=== PATIENT | male | born 1945 | race Caucasian/White ===

== ENCOUNTER → 2016-09-06 | Outpatient (CLI) | payer OTHER ==
[~2016-09-06] VITALS: Ht 175.3 cm; Wt 130.2 kg
[~2016-09-06] MED LIST: ACETAMINOPHEN325 M1 PO; AFRIN MENTHOL S15 ML; AMARYL4 MG PO; APAP500; CALCIUM OYSTER500 MG PO; CENTRUM SILVER1 EAC1 PO; CHLORDIAZEPOXI1 EAC1 PO; DICYCLOMINE HCL20 MG PO; EFFEXOR XR150 MG PO; ENDOCET 10-3251 EACH PO; FLOMAX PO; FLONASE 0.05%50 MCG NASAL; FUROSEMIDE 20 M20 M1 PO; GAVISCON500 MG PO; GLUCOPHAGE850 MG PO; HYTRIN10 MG PO; INNOPRAN XL80 MG PO; KENALOG63 GM NASAL; LATANOPROST2.5 ML OP; LAVAZA; LEVOTHYROXIN0.075 MG PO; LIBRAX PO; LIPITOR20 MG PO; LOPRESSOR PO; LOVAZA1000 MG PO; MECLIZINE HCL12.5 MG PO; MIRALAX255 GM; MUCINEX D TABL1 EACH PO; NASACORT10.8 ML; NASAL SPRAY ORI30 ML; NEURONTIN 300300 M1 PO; NEURONTIN 300M300 M2 PO; OXYCODONE-ACET1 EAC2 PO; OXYCONTIN30 MG PO; OXYCONTIN40 MG PO; PRADAXA150 MG PO; SKELAXIN 800 M800 M1 PO; SKELAXIN 800 M800 MG PO; SYNTHROID PO; TOPROL XL100 MG PO; TRICOR145 MG PO; VITAMIN C 250250 MG PO; VITAMIN D 5050000 I1 PO; VITAMIN D1000 UNI1 PO; ZYRTEC PO
--- NOTE | ~2016-09-06 | HPC ---
[facility] [address] [place] [address] PAIN MANAGEMENT CONSULTATION Name: TOSIN ABBOTT Room #: REG ANTONETTE Harris#: [id number] Admission: 09/06/16 Attend Phys: Antolin Godinez MD Discharge: Date of : 43 Report #: [id number] THIS REPORT FOR: //name// CC: YAKELIN Rowe DATE OF SERVICE: 09/06/2016 Followup visit for chronic back pain. The patient returns to pain clinic today with his . He was in the clinic for a 30-minute consultation visit. We spent a lot of time with him again today as we often do. He remains one of our legacy patients on high dose opioid therapy. His current morphine milligram equivalent dose is 275 mg, nearly 3 times that recommended as the top dose by the CDC guidelines. While we have made efforts to taper his medication, we are some resistance as he continues to complain bitterly of pain with each reduction. He reports that his current oxycodone dose allows him to be more functional. He is morbidly obese, but has lost some weight over the course of the last year. His mobility remains limited, however. He has very low pain threshold. He does not have diffuse pain as one might see with opioid hyperalgesia, but he is certainly hyperalgesic across his low back. His examination reveals that he is exquisitely painful across his low back. We talked about perhaps injections or other therapies that would allow us to be able to adjust his opioid dose downwards with an opioid sparing fact, but he is reluctant to have any injections and refused them flat out. He says the last time he has had injections, they caused more problems than they were worth. He has terrible thrush with any sort of steroid injections. He is not really a candidate for surgery. On a positive note, he has not been hospitalized, he does not use the ER for rescue, he has not had any lost prescriptions, he has been on time for all of his doctor's appointment. He and his have been drilled over and over about safe monitoring of all of his medications. He has taken his medications I believe as prescribed with benefits that he has appreciated. After some discussion today, I have elected to keep this dose the same, we will not make further adjustments. CURRENT MEDICATIONS: OxyContin 70 mg t.i.d., oxycodone 10/325 one tablet q. 4 hours averaging of about 4-1/2 tablets per day. Uses Skelaxin 800 mg b.i.d., gabapentin 300 mg q. 6 hours. PHYSICAL EXAMINATION: He is anxious, loquacious, 71-year-old. His blood pressure is 131/66, heart rate 73. His BMI is down to 42. [place] [address] PAIN MANAGEMENT CONSULTATION Name: TOSIN ABBOTT Room #: REG ANTONETTE Harris#: [id number] Admission: 09/06/16 Attend Phys: Antolin Godinez MD Discharge: Date of : 43 Report #: [id number] from sitting to standing position, but walks with somewhat of a waddling gait. His chest is clear. His cardiac rhythm is regular. Examination of his abdomen reveals morbidly obese gentleman with a large abdominal girth. Examination of his spine reveals marked limitations in range of motion. He has regarding in all planes. Palpatory exam reveals tenderness across the lumbosacral segment. Light touch overlying the lumbar L5-S1 region elicited a scream, a howl and a jump. Certainly, hyperalgesic in that areas, the pressure exerted was not much. Straight leg raising currently is negative for any radicular symptoms. IMPRESSION: 1. Intractable low back pain with spondylosis. 2. Management of high risk medications under terms of an opioid agreement. He remains one of the highest dose patient's in our clinic and we will continue to monitor him carefully. We have performed a urine drug screen within the last 12 months, which was appropriate for medications provided through our clinic, oxycodone only was identified. PLAN: Followup visit is planned in 3 months. I stressed once again the importance of safeguarding medication. Thirty minutes spent with the patient. By: [id number] Antolin Godinez MD /nt
[2016-09-06 11:17] VITALS: BP 131/66
== END | disposition home or self-care (01) ==
LOC: PAIN 07:27
DX: M47.896 Other spondylosis, lumbar region (principal); G89.29 Other chronic pain; F11.20 Opioid dependence, uncomplicated; Z87.891 Personal history of nicotine dependence

== ENCOUNTER → 2016-11-29 | Outpatient (CLI) | payer OTHER ==
[~2016-11-29] VITALS: Ht 167.6 cm; Wt 127.0 kg
--- NOTE | ~2016-11-29 | HPC ---
[facility] [address] [address] PAIN MANAGEMENT CONSULTATION Name: TOSIN ABBOTT JR Room #: REG [facility] Mary.#: [id number] Admission: 11/29/16 Attend Phys: Antolin Godinez MD Discharge: Date of : 43 Report #: [id number] THIS REPORT FOR: //name// CC: Antolin Martinez DATE OF SERVICE: 11/29/2016 Followup visit for management of high dose high risk medication. The patient returns to pain clinic today with his . We had another lengthy discussion today about his medication. Much of these issues were reviewed on his appointment on 09/06/2016. I went through each of the issues described in that dictation once again, the CDC guidelines particularly with his daily morphine equivalent dose of 277.5 mg. We talked about the importance of safeguarding medication. He has really other than the dose of medication has followed the guidelines quite carefully. In defense of this high dose therapy, I will say once again that over the course of his longstanding medication management, dating back to 2000, he has avoided any Emergency Room visits for intractable pain. He has not been hospitalized for his pain issues. He has had no additional operations. He has not sought out additional physician treatment options. He has continued to remain fairly active, limited more by his obesity than he is by his pain. He has been able to enjoy family and other activities. On that basis, I feel that his medication management has been successful. There has been no evidence of drug abuse of behaviors or diversion. CURRENT MEDICATIONS: OxyContin 70 mg b.i.d. and oxycodone 10/325 1 tablet q. 4-6 hours averaging 5 per day. Gabapentin 300 mg q. 6 hours, Skelaxin 800 mg b.i.d. PHYSICAL EXAMINATION: Pleasant elderly gentleman, 71 years of age, morbidly obese. His BMI is 45.2. His blood pressure 128/53, heart rate 65, respirations 16. He is able to move independently from sitting to standing position, walks without a cane. He has pain across his low back, tenderness into his left leg. Sensation and strength are normal in lower extremities. He also has pain on the right, radiating into the right hip with SLR. Plan: Under terms of our opioid agreement I will continue to prescribe for him with efforts to reduce his reliance on opioids. The critical necessity of managing medications carefully so that they are not diverted or stolen was discussed. Followup is planned in our clinic at [address] [address] PAIN MANAGEMENT CONSULTATION Name: TOSIN ABBOTT Room #: REG [facility].#: [id number] Admission: 11/29/16 Attend Phys: Antolin Godinez MD Discharge: Date of : 43 Report #: [id number] <ELECTRONICALLY SIGNED> By: Antolin Godinez MD 12/03/16 1722 1605 [id number] Antolin Godinez MD /alex
[2016-11-29 11:03] VITALS: BP 128/53
== END | disposition home or self-care (01) ==
LOC: PAIN 07:45
DX: M54.16 Radiculopathy, lumbar region (principal); G89.29 Other chronic pain; F11.20 Opioid dependence, uncomplicated; Z88.8 Allergy status to other drugs, medicaments and biological substances; Z79.899 Other long term (current) drug therapy

== ENCOUNTER → 2017-02-21 | Outpatient (CLI) | payer OTHER ==
[~2017-02-21] VITALS: Ht 167.6 cm; Wt 126.6 kg
[~2017-02-21] MED LIST changes: +GAVISCON 80-141 EACH PO; -GAVISCON500 MG PO
--- NOTE | ~2017-02-21 | HPC ---
[facility] [place] [address] PAIN MANAGEMENT CONSULTATION Name: TOSIN ABBOTT Room #: REG [facility] Mary.#: [id number] Admission: 02/21/17 Attend Phys: Antolin Godinez MD Discharge: Date of : 43 Report #: [id number] THIS REPORT FOR: //name// CC: Antolin Martinez DO DATE OF SERVICE: 02/21/2017 Followup visit for management of high-dose opioids for intractable back pain with radiculopathy. The patient is in the clinic today for another 25-minute followup visit. He is here with his who was helpful also in giving us feedback about how he is doing. As I noted on my dictation of 11/29/2016, the patient has done extremely well with these medications and avoiding additional health care encounters, and the same would hold true for the last 3-month interval. He has not been hospitalized, not been in the Emergency Room. He continues to do well with managing his pain carefully with medication. Despite what we describe as good pain management control, his pain score is an 8/10. It is exacerbated by standing, twisting and turning. I do not think the pain score is helpful here in truly reflecting how well the medication has done in keeping him functional. We have talked about cognitive side effects. The patient has always been a bit tangential in his discussions. Today, he had some word searching and I have asked Ana to watch it carefully. This kind of insulted the patient and he went into a long dissertation. He claims that I would do the same and he may be correct! Today, he reports that he has continued to lose some weight, his BMI is indeed down from 45.1. Blood pressure 114/71, pulse is 60. He has tenderness across his low back and positive straight leg raising on the right. IMPRESSION: 1. Chronic intractable low back pain with radiculopathy on the right. 2. Management of high risk medications. 3. Morbid obesity. PLAN: I have renewed his medications at current dose. We will continue to try and taper his medication gradually. He remains on some polypharmacy including 70 mg of OxyContin b.i.d., oxycodone 10/325 mg 4-5 tablets daily, Skelaxin 800 mg b.i.d. as needed, gabapentin 300 mg daily. We will continue to try and taper him towards the CDC guideline, although this would be very challenging at his dose of around 200 mg. I made it critical that he safeguard his medications and he and Ana both report that they are very [address] [address] PAIN MANAGEMENT CONSULTATION Name: ABBOTTTOSIN Room #: REG [facility] Steven#: [id number] Admission: 02/21/17 Attend Phys: Antolin Godinez MD Discharge: Date of : 43 Report #: [id number] cautious about doing so; they have been on time for all there prescriptions and there have been no red flag behaviors. <ELECTRONICALLY SIGNED> By: Antolin Godinez MD 02/22/17 1322 [id number] [id number] Antolin Godinez MD /nt
[2017-02-21 10:39] VITALS: BP 114/71
== END ==
LOC: PAIN 06:58
DX: M54.16 Radiculopathy, lumbar region (principal); E66.01 Morbid (severe) obesity due to excess calories

== ENCOUNTER → 2017-05-02 | Outpatient (CLI) | payer OTHER ==
[~2017-05-02] VITALS: Ht 167.6 cm; Wt 125.9 kg
--- NOTE | ~2017-05-02 | HPC ---
[facility] [address] [address] PAIN MANAGEMENT CONSULTATION Name: TOSIN ABBOTT Room #: REG [facility] Steven#: [id number] Admission: 05/02/17 Attend Phys: Antolin Godinez MD Discharge: Date of : 43 Report #: [id number] THIS REPORT FOR: //name// CC: Antolin Martinez DATE OF SERVICE: 05/02/2017 A 25-minute followup visit for chronic low back pain. The patient is in clinic today with his for a 20-minute followup visit. He remains on high dose opioids. He remains on high dose opioid therapy. His current daily dose is OxyContin 70 mg b.i.d. and oxycodone 10/325 mg 4-5 tablets a day. In addition, he takes metaxalone 4 times daily for muscle relaxation and gabapentin 300 mg 9 tablets daily. Despite this high dose of medication he reports that his pain every day as a 7-8/10, sharp, stabbing and burning across his low back. We discussed his Darrell and the recent passing of his [id number] in [place]. He and his Amee drove to [place] and he complained bitterly about the fact that he had to do some simple tiding in the house. This aggravated his pain tremendously. He has had no significant side effects with medication. We made efforts in tapering his medication throughout 2017 and will continue that in 2018. I have given him the rationale for this. I have also told him that we are finding more often than not patients in the high dose opioid therapy are not able to find physicians to transfer their care. I will be 61 this year and in the future, he will need to consider the possibility of transferring his care to another physician. Physicians have been very reluctant to accept new high dose opioid patients. These are the simple facts of today's medicine. I continue to report that his medication provided a decent interval relief. He stayed out of the Emergency Room. He has not had any operations. He has remained functionally active around the house. He is able to do many of the things that he would like to do. Today, he reports that his pain is all basically across the lumbosacral segment without leg pain. At one time, he had more radiculopathy on the right. This seems to have resolved over time. PHYSICAL EXAMINATION: GENERAL: He appears to be alert and oriented. His speech pattern seem better to me today. It was not word searching as much as he has been in the past. He is morbidly obese with a BMI of over 45. VITAL SIGNS: Blood pressure is 114/71, [place] [address] PAIN MANAGEMENT CONSULTATION Name: ABBOTTTOSIN Room #: REG ANTONETTE Harris#: [id number] Admission: 05/02/17 Attend Phys: Antolin Godinez MD Discharge: Date of : 43 Report #: [id number] MUSCULOSKELETAL: He has significant tenderness across the lumbosacral segment. He has minimal pain in the hip. PQRI STATEMENT: Tosin does not smoke. He is not hypertensive. I have reviewed and reconciled all medications. He denies any symptoms of osteoarthritis. Pain score is 7-8/10. He has taken using a cane, has a stabilizing assistance and would be considered a fall risk. We talked about cautious movements, particularly from sitting to standing. A fall plan was reviewed. I have reviewed with him his opioid agreement and plan to see him at 3-month intervals. He denies use of alcohol. PLAN: We will continue his medications at current dosing of 70 mg of OxyContin b.i.d., oxycodone 10/325, Skelaxin 800 mg b.i.d. and gabapentin 300 mg 3 tablets daily. We will work to continue tapering and will make an additional move in 07/2017. A 25-minute followup visit. <ELECTRONICALLY SIGNED> By: Antolin Godinez MD 05/06/17 1048 [id number] Antolin Godinez MD /nt
[2017-05-02 10:20] VITALS: BP 136/90
== END ==
LOC: PAIN 06:46
DX: M54.16 Radiculopathy, lumbar region (principal); F11.90 Opioid use, unspecified, uncomplicated

== ENCOUNTER → 2017-07-25 | Outpatient (CLI) | payer OTHER ==
[~2017-07-25] VITALS: Ht 170.2 cm; Wt 127.6 kg
--- NOTE | ~2017-07-25 | HPC ---
[facility] [address] [place] [address] PAIN MANAGEMENT CONSULTATION Name: TOSIN ABBOTT Room #: REG Yo Hernandez.#: [id number] Admission: 07/25/17 Attend Phys: Antolin Godinez MD Discharge: Date of : 43 Report #: [id number] THIS REPORT FOR: //name// CC: Antolin Martinez DATE OF SERVICE: 07/25/2017 Three-month followup visit for management of high dose, high risk medication. The patient has been a longstanding patient of the clinic. Our relationship began in 1999. He has been on OxyContin for management of his back pain since 2000. His dose has been stable at high dose for over 10 years. He has been followed very carefully and closely at 3-month intervals coming always with his , Ana. We have had multiple discussions over the years about his medication use with attempts to reduce his medication dose. He has very aggressively fought against medication reduction generally on the basis of severe increases in pain when he does not have the medication available. He describes his pain intensity is a 7/10. Pain is nearly always in his low back radiating through his right hip and leg. He has been treated in the past with epidural injections and we have offered in the past more aggressive interventional procedures for treatment; however, he has been able to manage his pain effectively with the medication and is reluctant to take the risks of additional procedures including spinal cord stimulation and intrathecal pump. I have noted elsewhere throughout the record that when we describe his management goals, we have been able to keep him out of the Emergency Room in the hospital. Not one time over the course of the last 18 years has he been hospitalized for uncontrolled or intractable pain. He has not had a single visit to an Emergency Room to pursue treatment for unmanageable back pain symptoms. He has been on time for his medication and shows up for his appointments. His , Ana helps manage his medication with him so that he has someone to help oversee his treatments. He has been able to be reasonably function, limited far more by his obesity and his obsessive compulsive disorder then he has by his pain. He is in fact assisting his in the upcoming move from their 2-vin home into a single level in the next weeks to come. I have reviewed all medications on the electronic medical record. He is on a significant polypharmacy. For pain, we have kept him on a stable regimen, which is complex. He is on gabapentin 300 mg 4 times daily, metaxalone mg 4 times daily, OxyContin 70 mg b.i.d., oxycodone 10/325 four to five tablets a day for breakthrough pain. He denies significant side effects. Bowels function well. He has not had difficulty with nausea. I have noticed in the course of the last few years that he has had some progressive word searching, this could be related to this medication. [address] [address] PAIN MANAGEMENT CONSULTATION Name: ABBOTTTOSIN NORTH Room #: REG ANTONETTE Harris#: [id number] Admission: 07/25/17 Attend Phys: Antolin Godinez MD Discharge: Date of : 43 Report #: [id number] Periodic drug testing is performed and I have recommended that we perform drug testing today. Overall, review of systems suggest that he has dyspnea on exertion and has difficulty going up and down stairs as a result of his obesity. He has nocturia typical of a 71-year-old. He has variable sleep habits, changes positions frequently throughout the night. He is able to sleep in a bed. He has a possible fall risk, but has had no falls in the last 3 months and uses a cane carefully. He is on the blood thinner, Pradaxa for history of DVT and atrial fib. He is also under treatment for hypertension. He complains of pain in other joints including hips and knees related to osteoarthritis, although we have no new x-rays. He denies use of tobacco or alcohol. He has completed an opioid risk assessment tool and is considered a low risk with a score of 1 due to a history of depression. His functional assessment tool score is at 34/70 showing some adaptation to his pain. His most recent opioid contract review and signing was in November 2015. PHYSICAL EXAMINATION: GENERAL: Shows a pleasant, loquacious gentleman, a bit of obsessive compulsive. He has a bit of word searching today and I have noted that previously. His BMI is 44.1. As usual, he is wearing short pants and knee socks as he does 12 months a year. He is able to independently move from sitting to standing position. He ambulates with a slow gait. Thoracic kyphosis is noted. VITAL SIGNS: Cardiac rhythm is regular today. Heart rate is 78, blood pressure 136/63. There is no evidence of dyspnea or shortness of air. ABDOMEN: Obese. MUSCULOSKELETAL: Straight leg raising discomfort noted, more so on the left. IMPRESSION: 1. Chronic low back pain with radiculopathy. 2. Management of high risk medication. All medications were reviewed, renewed under terms of our written opioid agreement. I discussed in detail the CDC guidelines. He is one of our highest dose patients. We have talked about the addiction issues in [place]. We have talked about goals of care, which include avoiding additional health care contacts for his condition. We have talked about safeguarding of all medications, which his assists him with. I also discussed with advanced care planning. He is quite dependent on her. She is his durable power of data operations director and they have completed healthcare directives. Plan is for him to follow up at 3-month intervals. Buccal drug testing was performed before discharge. [facility] [address] [facility] [place] [address] PAIN MANAGEMENT CONSULTATION Name: SCARTOSIN Room #: REG CLI Steven#: [id number] Admission: 07/25/17 Attend Phys: Antolin Godinez MD Discharge: Date of : 43 Report #: [id number] Time spent in visit is 30 minutes. By: [id number] Antolin Godinez MD /nt
[2017-07-25 10:32] VITALS: BP 136/63
== END ==
LOC: PAIN 06:59
DX: M54.16 Radiculopathy, lumbar region (principal); G89.29 Other chronic pain; Z79.899 Other long term (current) drug therapy

== ENCOUNTER → 2017-10-17 | Outpatient (CLI) | payer OTHER ==
[~2017-10-17] VITALS: Ht 170.2 cm; Wt 124.2 kg
--- NOTE | ~2017-10-17 | HPC ---
[facility] [place] [address] [address] [place] [address] PAIN MANAGEMENT CONSULTATION Name: TOSIN ABBOTT [facility] [id number] Admission: 10/17/17 Attend Phys: Antolin Godinez MD Discharge: Date of : 43 Report #: [id number] THIS REPORT FOR: //name// CC: Antolin Martinez DO DATE OF SERVICE: 10/17/2017 Followup visit for chronic back pain. This is a followup visit for the patient. I have many lengthy dictations on the chart documenting his chronic use of very high dose OxyContin and oxycodone. His dose of OxyContin is 70 mg b.i.d. and oxycodone 10/325 up to 5 times a day. I provided him with these medications under terms of written opioid agreement. He has had a recent buccal drug screen appropriate for medications provided with no surprises. He and his have recently moved into a fci apartment. All maintenance provided. He is happy to be there, but he reports that it was challenging to move out of his previous home. He had some exacerbations of pain. He is asked once again as he pain is higher after activities. I have had many discussions with him about rest, nonpharmacologic relaxation techniques, heat, ice and simply allowing himself to get better. One of the reasons I gave him 135 breakthrough tablets is that most days I want him to use 4 for breakthrough that is plenty. He can keep the additional medication for those severe days. He is clearly quite dependent on medication for management of his pain and I will continue it for now. I have told him that he is one of the highest dose patients in our practice and I have over the years made efforts to try and reduce his medication. This is often a push-pull relationship as the patient continually suggests that he is undertreated. On more positive note, he is still avoiding any other health care contacts. He has not been in the hospital. He has not been in the Emergency Room. I once again feel that treating his pain has been an important aspect of that. Without adequate pain control, I suspect that he would be in the Emergency Room on a regular basis. Continues depend heavily on his , Ana, who is always at his side and helps manage his medication. We have had multiple discussions and reiterated again the importance of safeguarding all medications. PHYSICAL EXAMINATION: Blood pressure is 130/70, heart rate 63, respirations 20, BMI is 42.9. Can independently move from sitting to standing position, walk [address] [address] PAIN MANAGEMENT CONSULTATION Name: TOSIN ABBOTT Room #: REG [facility] Mary.#: [id number] Admission: 10/17/17 Attend Phys: Antolin Godinez MD Discharge: Date of : 43 Report #: [id number] with a cane. He does not appear to be a fall risk. He has an opioid agreement signed in 2016 and has signed his first agreement nearly 20 years ago. His pain is mostly in his low back and radiates into his leg with radicular features. He has some osteoarthritis. He is at low risk of addiction by the assessment tool. He does not smoke or use alcohol. IMPRESSION: 1. Chronic low back pain with radiculopathy. 2. Management of high-risk medication. 3. Morbid obesity. Followup visit planned in 3 months. I have renewed his medications. By: [id number] Antolin Godinez MD /nt
[2017-10-17 13:56] VITALS: BP 130/70
== END ==
LOC: PAIN 06:58
DX: M54.16 Radiculopathy, lumbar region (principal); M54.5 Low back pain; E66.01 Morbid (severe) obesity due to excess calories; Z79.899 Other long term (current) drug therapy

== ENCOUNTER → 2018-03-31 | Outpatient (CLI) | payer OTHER ==
[~2018-03-31] VITALS: Ht 167.6 cm; Wt 124.5 kg
--- NOTE | ~2018-03-31 | HPC ---
[facility] [place] [address] PAIN MANAGEMENT CONSULTATION Name: TOSIN ABBOTT Room #: REG [facility] Mary.#: [id number] Admission: 03/31/18 Attend Phys: Mindi Min Discharge: Date of : 41 Report #: [id number] THIS REPORT FOR: //name// CC: Mindi Martinez DO DATE OF SERVICE: 03/31/2018 This is a followup visit for his chronic back pain. HISTORY OF PRESENT ILLNESS: The patient presents today with low back pain; right hip, right leg pain, especially in the right sacroiliac area, complaining of 7/10 of an average pain score, here for his medication renewal for this back pain. He also is complaining of some right wrist pain that he has had some arthritis and he tells me that it has been worse over the last few days with the weather and moving things. They have recently moved into a new house and he thinks just being active moving things has irritated it some also. He did tell me that his pain is worse when he is standing, twisting, riding in a car, changing positions; and medication is very helpful. The patient tells me that he has no problems with constipation because he uses MiraLax and does not have any daytime somnolence. Occasionally, he does take naps when he has not slept well in the evening. He has recently had his second sleep study. He is unsure of the results of this, that he will go to the sleep study doctor in June, but will find out from his primary care doctor hopefully the results before then. His tells me that he does snore and they did send his mask home with him from his sleep study, so she thinks that he will be getting a CPAP machine in the future. ALLERGIES: DARVON, BIAXIN and METHADONE. CURRENT MEDICATION LIST: Oxycodone 10/325 up to 5 a day, OxyContin 40 mg twice a day, OxyContin 30 mg twice a day, Skelaxin 800 mg twice a day as needed, gabapentin 300 mg 1 tablet 4 times a day, vitamin D, Flonase, Synthroid, omega 3, metoprolol 100 mg daily, MiraLax daily, Zyrtec daily, Mucinex twice a day, vitamin C, calcium, multivitamin, Pradaxa 150 mg twice a day, dicyclomine 20 mg daily, metformin 850 mg daily, Effexor XR 150 mg daily, Hytrin 10 mg daily, Lipitor 20 mg daily, TriCor 145 mg daily, Amaryl 4 mg daily, Lasix 20 mg daily and Flomax 0.4 daily. PQRS: 1. He has history of osteoarthritis in his right wrist and his lower back. Denies rheumatoid arthritis. 2. Height is 5 feet 6 inches, weight is 274 with a BMI of 44.3. 3. Vital signs BP 140/87, pulse is 84, respirations 20, oxygen sat is 100%, [address] [address] PAIN MANAGEMENT CONSULTATION Name: TOSIN ABBOTT JR Room #: REG ANTONETTE Harris#: [id number] Admission: 03/31/18 Attend Phys: Mindi Min Discharge: Date of : 41 Report #: [id number] pain score is 7/8. 4. Fall risk. He denies dizziness. Does not need help walking or standing and has not fallen in the last 3 months. 5. The patient is on Pradaxa for blood thinner and has a history of hypertension. 6. The patient is on opioid therapy greater than 6 weeks; therefore, an opioid sign contract is on the chart and a recent buccal screen. 7. His risk assessment is low and his functional assessment is 15/70 which has decreased impact score from the previous one. 8. Recreational drug use. He denies he is a former smoker and does not drink alcohol. We did check the [place] and [place] prescription monitoring system and patient is filling appropriately from only Dr. Antolin Godinez for his narcotic medicines. The patient tells me he safeguards his medicines. PHYSICAL EXAMINATION: GENERAL: This is a well-developed, well-nourished gentleman that appears his stated age. He is alert and oriented x 3. His affect is appropriate. HEENT: Normocephalic, atraumatic. Extraocular eye muscles are intact. Mucous membranes are moist. Hearing is adequate. NECK: No JVD or adenopathy. MUSCULOSKELETAL: The patient is developing kyphosis, becoming very rotund and immobile. EXTREMITIES: Lower extremities demonstrate status discoloration in his lower extremities, localized tenderness in his lower back particular over his right sacroiliac area. Straight leg raising is positive for pain in the sacroiliac joint. No radicular component though is present. Also, pain located in the right wrist, slightly tender on the outer part of his wrist today. Lower muscle extremity strength judged to be 4/5 bilaterally in all major muscle groups. IMPRESSION: 1. Chronic low back pain with sacroiliac joint pain. 2. Management of high risk medication. 3. Morbid obesity. 4. Hypertension. We reviewed the fact that opiate medications are being used to provide analgesia adequate to support activities of daily living, not attempting to achieve a specific pain score on the 0-10 Visual Analog Scale. The current opiate medications are providing sufficient analgesia to allow the patient to participate in activities of daily living. The patient is not exhibiting any aberrant behavior suggestive of drug diversion. The patient is not having any adverse reactions to medications. The patient is not suffering from daytime somnolence or mental acuity changes. The patient is managing opiate-induced constipation with appropriate pfmr-ozb-oendnoo agents and dietary considerations. The patient was counseled on concern for caution with operating a motor vehicle while using opiate medications. [address] [address] PAIN MANAGEMENT CONSULTATION Name: TOSIN ABBOTT Room #: REG [facility].#: [id number] Admission: 03/31/18 Attend Phys: Mindi Min Discharge: Date of : 41 Report #: [id number] A physical exam was performed and the patient's functional status was evaluated. All patients with back pain were advised against the bed rest greater than 4 days and were advised to return to normal activities. Pain score assessment was noted and the treatment plan was reviewed with the patient. All current medications, both prescribed and OTC were reviewed and reconciled on the electronic medical record. Tobacco screening was accomplished and smoking cessation was advised when indicated. BMI was noted and diet/exercise modification was recommended for all patients following outside normal parameters. I reviewed with the patient today their responsibilities to safeguard prescription medications, reviewed their responsibility to utilize medications only as prescribed by the physician. They are to seek and receive pain medications only from 1 physician group ( [facility]). They are to use 1 pharmacy and keep the clinic informed if they change pharmacies. Their responsibilities include making followup visits in a timely fashion and to avoid abrupt discontinuation of medication usage. Their responsibilities further include bringing their medications (bottles from the pharmacy with residual pills) to the visit for possible confirmation of pill counts and the patient understands it is their responsibility to submit to random drug screens to ensure both that the medications prescribed are present, and that no other controlled substances are present. All prescriptions provided today were generated electronically. PLAN: 1. The patient seen today for refill of his long-term opioid medication that he is followed by Dr. Antolin Godinez. The patient is on a very high dose of his opioids per the CDC guidelines that has been decreased recently and patient has tolerated this decrease and has been doing better as far as activity. The patient seems alert and oriented, very upbeat today, compared to previous visits. We will refill his medication for 3 months based on his contract with Dr. Antolin Godinez of OxyContin 30 mg, #60 for today, 4-week and 8-week release; OxyContin 40 mg b.i.d., #60 for today, 4-week and 8-week release; oxycodone 10/325, #135, again for today, 4-week and 8-week release; Skelaxin 80 mg, 120 for a 3-month supply with 2 additional refills for mail off. The patient does not need gabapentin today since we gave him a year's supply at last visit. 2. The patient will be seen again in 3 months for his opioid medicines. The patient is agreeable with this plan of care. This patient is seen today in collaboration with Dr. Antolin Godinez. <ELECTRONICALLY SIGNED> By: Mindi Min 04/01/18 0817 [id number] Mindi Min /alex
[2018-03-31 10:06] VITALS: BP 140/87
== END ==
LOC: PAIN 00:20
DX: M54.5 Low back pain (principal); G89.29 Other chronic pain; M53.3 Sacrococcygeal disorders, not elsewhere classified; I10 Essential (primary) hypertension; E66.01 Morbid (severe) obesity due to excess calories; Z79.899 Other long term (current) drug therapy

== ENCOUNTER → 2018-06-27 | Outpatient (CLI) | payer OTHER ==
[~2018-06-27] VITALS: Ht 167.6 cm; Wt 125.3 kg
[2018-06-27 08:58] VITALS: BP 147/85
--- NOTE | 2018-06-27 09:03 | NUR ---
Pain Clinic Assessment: 1. History of Osteoarthritis: NO History of Rheumatoid Arthritis: Not Applicable 2. Height: 5 ft. 6 in. 167.6 cm. Weight: 276.2 lb. oz. 125.284 kg. Patient's BMI: 44.6 3. Vital Signs: BP: 147/85 Pulse: 70 Resp: 16 Temp: 02 Sat: 96 ECG Mon: 4. Pain Intensity: 8 5. Fall Risk: Dizziness: N Needs help standing or walking: N Fallen in the last 3 months: N Fall risk comments: 6. Patient on Blood Thinner: Dabigatran Etex (Pradaxa) 7. History of Hypertension: Y 8. Opioid Therapy greater than 6 weeks: Y Opiate Contract Signed: 11/09/15 9. Risk Assessment Tool Provided: LOW RISK-1 10. Functional Assessment Tool: 11. Recreational Drug Use: Never Drug Type: Tobacco Use: Former Smoker Tobacco Type: Amount or Packs/day: How Many Years: Alcohol Use: No Frequency: Quant:
--- NOTE | 2018-06-30 09:27 | HPC ---
[facility] [address] [place] [address] PAIN MANAGEMENT CONSULTATION Name: TOSIN ABBOTT Room #: REG ANTONETTE Hernandez.#: [id number] Admission: 06/27/18 ������������������ Attend Phys: Mindi Min Discharge: ������������������ Date of : 41 Report #: [id number] THIS REPORT FOR: //name// CC: Mindi Min Oral Martinez DATE OF SERVICE: 06/27/2018 CHIEF COMPLAINT: Chronic back pain. HISTORY OF PRESENT ILLNESS: The patient returns to the pain clinic today for refill of his medications for his ongoing low back pain that radiates into his right leg and hip and his right sacroiliac area. Today, he is complaining of a pain score of 8/10, states this is about the worst that he has been lately. He has worst pain when he is standing, twisting or riding in the car; better with his medication and ice bags. He tells me he has no problems with constipation. He does take some MiraLax. Otherwise, is very well controlled. He is here with his present today who she agrees that he has been doing quite well lately. He would just like a refill of his medication. He did state that sometimes, it is hard to make his oxycodone breakthrough pain medicines last for the month with a 135 pills that he has been managing. ALLERGIES: DARVON, DARVOCET, BIAXIN AND METHADONE. CURRENT LIST OF MEDICATIONS: Oxycodone 10/325 p.r.n., OxyContin 40 mg b.i.d., OxyContin 30 mg b.i.d., Skelaxin 800 mg b.i.d. p.r.n., Neurontin 300 mg q.6h., vitamin D daily, Flonase daily, Synthroid 75 mcg daily, Lovaza 4 tablets daily, Librax 1 as needed, Toprol-XL 100 mg daily, Gaviscon as needed, Afrin as needed, MiraLax daily, Zyrtec daily, vitamin C 250 mg 2 b.i.d., calcium 500 mg daily, multivitamin daily, Pradaxa 150 mg b.i.d., Bentyl 25 mg as needed, metformin 850 mg daily, Effexor XR 150 mg daily, Hytrin 10 mg daily, Lipitor 40 mg daily, TriCor 145 mg daily, Amaryl 4 mg daily, Lasix 20 mg daily, Flomax 0.4 mg daily. The patient has a history of osteoarthritis in his wrist, lower back and his hip. Denies rheumatoid arthritis. PQRS: Height is 5 feet 5 inches, weight is 276 pounds, BMI is 44. Vital signs: Blood pressure 147/85, pulse is 70, respirations 16, oxygen sat is 96. Pain score is 8/10. Fall risk: He denies dizziness. He does use a cane for walking, has not fallen in the last 3 months. The patient is on Pradaxa for his blood thinner and he does take medicines for hypertension. His opioid therapy is greater than 6 weeks; therefore, an opioid signed contract is on the chart. His risk assessment tool is low. His functional assessment is 15/70. The patient does not take any recreational drug use. He is a former smoker and does not drink alcohol. I did check the prescription monitoring system. The patient is filling appropriately from Dr. Antolin Godinez and there is a recent drug screen on the chart. [facility] [address] [place] [address] PAIN MANAGEMENT CONSULTATION Name: TOSIN ABBOTT JR Room #: REG [facility]#: [id number] Admission: 06/27/18 ������������������ Attend Phys: Mindi Min Discharge: ������������������ Date of : 41 Report #: [id number] PHYSICAL EXAMINATION: GENERAL: This is a well-developed, well-nourished, obese gentleman that appears his stated age. He is alert and orientated x 3. HEENT: Normocephalic, atraumatic. Extraocular eye muscles are intact. Hearing is adequate. MUSCULOSKELETAL: The patient has a kyphosis, being very rotund and immobile. EXTREMITIES: Slight discoloration in his lower extremities. He has localized tenderness in his low back. The patient does walk with an antalgic gait. His lower extremity strength judged to be 4/5 bilaterally in all major muscle groups. IMPRESSION: 1. Chronic low back pain with sacroiliac joint pain. 2. Management of high risk opioid medications under terms of written opioid agreement, morbid obesity, hypertension. We reviewed the fact that opiate medications are being used to provide analgesia adequate to support activities of daily living, not attempting to achieve a specific pain score on the 0-10 Visual Analog Scale. The current opiate medications are providing sufficient analgesia to allow the patient to participate in activities of daily living. The patient is not exhibiting any aberrant behavior suggestive of drug diversion. The patient is not having any adverse reactions to medications. The patient is not suffering from daytime somnolence or mental acuity changes. The patient is managing opiate-induced constipation with appropriate oakz-dki-wkjzrbw agents and dietary considerations. The patient was counseled on concern for caution with operating a motor vehicle while using opiate medications. A physical exam was performed and the patient's functional status was evaluated. All patients with back pain were advised against the bed rest greater than 4 days and were advised to return to normal activities. Pain score assessment was noted and the treatment plan was reviewed with the patient. All current medications, both prescribed and OTC were reviewed and reconciled on the electronic medical record. Tobacco screening was accomplished and smoking cessation was advised when indicated. BMI was noted and diet/exercise modification was recommended for all patients following outside normal parameters. I reviewed with the patient today their responsibilities to safeguard prescription medications, reviewed their responsibility to utilize medications only as prescribed by the physician. They are to seek and receive pain medications only from 1 physician group ( [facility]). They are to use 1 pharmacy and keep the clinic informed if they change pharmacies. Their responsibilities include making followup visits in a timely fashion and to avoid abrupt discontinuation of medication usage. Their responsibilities further [address] [address] PAIN MANAGEMENT CONSULTATION Name: ABBOTTTOSIN Room #: REG Yo Harris#: [id number] Admission: 06/27/18 ������������������ Attend Phys: Mindi Min Discharge: ������������������ Date of : 41 Report #: [id number] include bringing their medications (bottles from the pharmacy with residual pills) to the visit for possible confirmation of pill counts and the patient understands it is their responsibility to submit to random drug screens to ensure both that the medications prescribed are present, and that no other controlled substances are present. All prescriptions provided today were generated electronically. PLAN: 1. We discussed treatment options with the patient today. Dr. Centeno was present for part of this discussion. We will continue to renew his current medications, which he has find helpful, though occasionally, he finds it difficult to make his short-acting medicine last the full month. Scripts given today for Skelaxin 800 mg b.i.d., #120 with 2 additional refills, OxyContin 30 mg b.i.d., #60 for today, 4 and 8-week release; OxyContin 40 mg, #60 for today, 4-week and 8-week release; oxycodone 10/325, #135 for today, 4-week and 8-week release. 2. We will see the patient in 3 months' time. At that time, we will recheck a buccal drug swab on this patient. 3. The patient seen in collaboration with and Dr. Centeno was present for part of the discussion today. ��������������������������������������������� <ELECTRONICALLY SIGNED> ���������������������������������������� By: Mindi Min ��������������������������������������������� 06/30/1827 54 Mindi Min /nt
== END ==
LOC: PAIN 07:16
DX: M54.5 Low back pain (principal); G89.29 Other chronic pain; M53.3 Sacrococcygeal disorders, not elsewhere classified; I10 Essential (primary) hypertension; E66.01 Morbid (severe) obesity due to excess calories; Z79.891 Long term (current) use of opiate analgesic; Z79.899 Other long term (current) drug therapy; Z68.41 Body mass index [BMI] 40.0-44.9, adult

== ENCOUNTER → 2018-09-18 | Outpatient (CLI) | payer OTHER ==
[~2018-09-18] VITALS: Ht 167.6 cm; Wt 124.9 kg
[~2018-09-18] MED LIST changes: +VOLTAREN GEL 1100 G2 TOP
[2018-09-18 10:56] VITALS: BP 122/59
--- NOTE | 2018-09-18 11:13 | NUR ---
Pain Clinic Assessment: 1. History of Osteoarthritis: NO History of Rheumatoid Arthritis: Not Applicable 2. Height: 5 ft. 6 in. 167.6 cm. Weight: 275.4 lb. oz. 124.921 kg. Patient's BMI: 44.5 3. Vital Signs: BP: 122/59 Pulse: 68 Resp: 20 Temp: 02 Sat: 97 ECG Mon: 4. Pain Intensity: 8 BACK+KNEE 9 5. Fall Risk: Dizziness: N Needs help standing or walking: Y Fallen in the last 3 months: N Fall risk comments: 6. Patient on Blood Thinner: Dabigatran Etex (Pradaxa) 7. History of Hypertension: Y 8. Opioid Therapy greater than 6 weeks: Y Opiate Contract Signed: 11/09/15 9. Risk Assessment Tool Provided: LOW RISK-1 10. Functional Assessment Tool: 11. Recreational Drug Use: Never Drug Type: Tobacco Use: Former Smoker Tobacco Type: Amount or Packs/day: How Many Years: Alcohol Use: No Frequency: Quant:
--- NOTE | 2018-09-19 11:07 | HPC ---
[facility] [address] [place] [address] PAIN MANAGEMENT CONSULTATION Name: TOSIN ABBOTT Room #: REG [facility] Steven#: [id number] Admission: 09/18/18 ������������������ Attend Phys: Mindi Min Discharge: ������������������ Date of : 41 Report #: [id number] THIS REPORT FOR: //name// CC: Mindi Min Oral Michelle DATE OF SERVICE: 09/18/2018 CHIEF COMPLAINT: chronic back pain and right knee pain. HISTORY OF PRESENT ILLNESS: This is a 73-year-old gentleman who returns to the pain clinic today for refill of his medications that he takes for his ongoing low back pain that radiates into his right leg and his hip. He tells me today, in addition to this pain, he does have some right knee pain that started aggravating him a couple of weeks ago. His pain score today is an 8/10 in his back and 9/10 in his knee. He tells me that in the past, he had a torn meniscus repair on his knee and it feels the same as when he had that injury multiple years ago. He did recently see his primary care doctor, but no x-rays were done, wondering if we could order those today. He would also like a refill of his current pain medications. He feels that those are helpful in "keeping his pain in check" and able to function every day. He tells me his pain is worse with standing and twisting and riding in the car for a prolonged time. His medication and ice is helpful. He denies any problems with constipation, but he does tell me he does suffer from dry mouth. ALLERGIES: DARVON, BIAXIN, METHADONE. CURRENT MEDICATIONS: Skelaxin 800 mg b.i.d., oxycodone 10/325 every 4 hours p.r.n., OxyContin 70 mg b.i.d., gabapentin 300 mg q.i.d., vitamin D, Synthroid 75 mcg daily, Lovaza 4 tablets daily, Librax p.r.n., Toprol-XL 100 mg daily, MiraLax daily, Zyrtec daily, vitamin C daily, calcium daily, multivitamin daily, Pradaxa 150 mg b.i.d., Bentyl as needed, metformin 850 mg daily, Effexor 150 mg daily, Hytrin 10 mg daily, Lipitor 40 mg daily, TriCor 145 mg daily, glimepiride 4 mg daily, Lasix 20 mg daily, and Flomax 0.4 mg daily. PQRS: 1. The patient has a history of osteoarthritis in his wrists, lower back, in his knees and hips. He denies any rheumatoid arthritis. 2. Height is 5 feet 6 inches, weight is 275, and BMI is 44. 3. Vital signs: Blood pressure is 122/59, pulse 68, respirations 20, and oxygen sat is 97. 4. Pain score is 8-9/10. 5. Denies dizziness. Does use a cane for walking. He has not fallen in the last 3 months. 6. The patient is on Pradaxa. He does also take medicine for hypertension. 7. Opioid therapy is greater than 6 weeks. Opioid signed contract is on the [address] [address] PAIN MANAGEMENT CONSULTATION Name: TOSIN ABBOTT Room #: REG ANTONETTE Harris#: [id number] Admission: 09/18/18 ������������������ Attend Phys: Mindi Min Discharge: ������������������ Date of : 43 Report #: [id number] chart. 8. Risk assessment tool is low. Functional assessment is 1570. 9. Recreational drug use. He denies. He is a former smoker and does not drink alcohol. We checked the prescription monitoring system. The patient appears to be filling slightly sooner than his 30 days in between his prescriptions. He tells me that the breakthrough medicine is not holding him that he needs more of this to get by, when he has dental work especially. There is a drug screen on the chart from a year ago. We attempted to get a urine specimen today. The patient was here greater than 1 hour attempting to urinate. We will try to get a buccal screen on him the next time he is here. PHYSICAL EXAMINATION: GENERAL: This is a well-developed, well-nourished, obese gentleman who appears his stated age. He is alert and orientated, placing his pain score today from 8-9/10. HEENT: Normocephalic, atraumatic. Extraocular eye muscles are intact. Hearing is adequate. MUSCULOSKELETAL: The patient has kyphosis and very rotund abdomen. EXTREMITIES: Slight discoloration in his lower extremities, especially below his knees. He has localized tenderness across his lower back. He walks with an antalgic gait. Complains of right knee tenderness today and has knee pain on extension and flexion on the inner aspect of his knee. The patient does walk with an antalgic gait and his lower extremity strength judged to be 4/5 bilaterally in all major muscle groups. IMPRESSION: 1. Chronic low back pain with sacroiliac joint pain. 2. Right knee pain. 3. Management of high-risk medications under terms of written an opioid agreement. IMAGING: I did order a 3-view right knee x-ray today. It showed that the knee is in proper alignment and there was no fracture or dislocation in that knee. We reviewed the fact that opiate medications are being used to provide analgesia adequate to support activities of daily living, not attempting to achieve a specific pain score on the 0-10 Visual Analog Scale. The current opiate medications are providing sufficient analgesia to allow the patient to participate in activities of daily living. The patient is not exhibiting any aberrant behavior suggestive of drug diversion. The patient is not having any adverse reactions to medications. The patient is not suffering from daytime somnolence or mental acuity changes. The patient is managing opiate-induced constipation with appropriate nymr-qxi-zznbjau agents and dietary considerations. The patient was counseled on concern for caution with operating [facility] [address] [place] [address] PAIN MANAGEMENT CONSULTATION Name: TOSIN ABBOTT Room #: REG [facility].#: [id number] Admission: 09/18/18 ������������������ Attend Phys: Mindi Min Discharge: ������������������ Date of : 43 Report #: [id number] a motor vehicle while using opiate medications. A physical exam was performed and the patient's functional status was evaluated. All patients with back pain were advised against the bed rest greater than 4 days and were advised to return to normal activities. Pain score assessment was noted and the treatment plan was reviewed with the patient. All current medications, both prescribed and OTC were reviewed and reconciled on the electronic medical record. Tobacco screening was accomplished and smoking cessation was advised when indicated. BMI was noted and diet/exercise modification was recommended for all patients following outside normal parameters. I reviewed with the patient today their responsibilities to safeguard prescription medications, reviewed their responsibility to utilize medications only as prescribed by the physician. They are to seek and receive pain medications only from 1 physician group ( [facility]). They are to use 1 pharmacy and keep the clinic informed if they change pharmacies. Their responsibilities include making followup visits in a timely fashion and to avoid abrupt discontinuation of medication usage. Their responsibilities further include bringing their medications (bottles from the pharmacy with residual pills) to the visit for possible confirmation of pill counts and the patient understands it is their responsibility to submit to random drug screens to ensure both that the medications prescribed are present, and that no other controlled substances are present. All prescriptions provided today were generated electronically. PLAN: 1. Greater than 30 minutes were discussed regarding treatment options with this patient today. We discussed in great detail the CDC guidelines and his chronic pain medications. This is a longstanding opioid patient that I explained to him, we will not get him to 90 morphine mEq per the CDC guidelines that is his wish to try to attempt to decrease his OxyContin slightly to see if he tolerates this and how his pain is controlled. He does have significant side effects with constipation that he uses medications for on a daily basis and does also experience significant dry mouth. I explained to him that maybe this would get better if we are able to decrease his medications slightly. His current dose is 277 MMEs per day as I stated way above the CDC guidelines. I discussed this plan with Dr. Antolin Godinez who was also present for part of the meeting today and we as a team with the patient decided to decrease him to OxyContin 30 mg tablets 4 tablets a day, which will decrease his morphine mEq from 277 to 247 keeping his breakthrough medicine as it is. 2. The patient did request for us to increase his breakthrough pain medicine because he does have some dental procedures coming up. We explained to him that we are not able to increase one while we are trying to decrease the other. He should try to take less pain medicine on his good days of his breakthrough, so [facility] [address] [place] [address] PAIN MANAGEMENT CONSULTATION Name: TOSIN ABBOTT Room #: REG Yo Harris#: [id number] Admission: 09/18/18 ������������������ Attend Phys: Mindi Min Discharge: ������������������ Date of : 43 Report #: [id number] that will enable him to have that medication when he does have his oral surgery that we feel that he is on plenty of pain medicine that should cover that surgery. 3. We did attempt to obtain a urine specimen for a random drug screen today, but the patient was here greater than an hour drinking water and was unable to void, so we will check a buccal swab next time he is here. 4. Script was given today for: A. OxyContin 30 mg tablets, #120. The patient to take 2 tablets b.i.d. Script was given for today, 4-week, an 8-week. B. Oxycodone 10/325, #135 for today for an 8-week release. C. Skelaxin 800 mg q.i.d., #120 with 2 additional refills. D. Voltaren gel 4 gram q.i.d. with refills. The patient is instructed to use that on his right knee to see if that is beneficial. 5. We explained to the patient that we will not change his medications for at least 3 months. We will see how he is doing in followup. He verbalized understanding about this change at this time. He was instructed that we will not decrease him then again for a significant amount of time if ever, but we at least have to make the effort to try and decrease his pain medications. 6. Dr. Godinez saw the patient as stated above and was collaborated care today. ��������������������������������������������� <ELECTRONICALLY SIGNED> ���������������������������������������� By: Mindi Min ��������������������������������������������� 09/19/18 1107 [id number] Mindi rodriguez
== END ==
LOC: PAIN 06:49
DX: G89.29 Other chronic pain (principal); M25.761 Osteophyte, right knee; M47.816 Spondylosis without myelopathy or radiculopathy, lumbar region; M16.0 Bilateral primary osteoarthritis of hip; M17.0 Bilateral primary osteoarthritis of knee; I10 Essential (primary) hypertension; Z88.8 Allergy status to other drugs, medicaments and biological substances; Z79.899 Other long term (current) drug therapy; Z79.891 Long term (current) use of opiate analgesic; Z87.891 Personal history of nicotine dependence

== ENCOUNTER → 2018-12-08 | Outpatient (CLI) | payer OTHER ==
[~2018-12-08] VITALS: Ht 167.6 cm; Wt 122.0 kg
[~2018-12-08] MED LIST changes: +AZELASTINE137 MCG/0. NASAL
[2018-12-08 10:25] VITALS: BP 110/55
--- NOTE | 2018-12-08 10:35 | NUR ---
Pain Clinic Assessment: 1. History of Osteoarthritis: Not Applicable History of Rheumatoid Arthritis: Not Applicable 2. Height: 5 ft. 6 in. 167.6 cm. Weight: 269.0 lb. oz. 122.018 kg. Patient's BMI: 43.4 3. Vital Signs: BP: 110/55 Pulse: 76 Resp: 20 Temp: 02 Sat: 98 ECG Mon: 4. Pain Intensity: 8-9 5. Fall Risk: Dizziness: N Needs help standing or walking: N Fallen in the last 3 months: N Fall risk comments: 6. Patient on Blood Thinner: Dabigatran Etex (Pradaxa) 7. History of Hypertension: Y 8. Opioid Therapy greater than 6 weeks: Y Opiate Contract Signed: 11/09/15 9. Risk Assessment Tool Provided: LOW RISK-1 10. Functional Assessment Tool: 11. Recreational Drug Use: Never Drug Type: Tobacco Use: Former Smoker Tobacco Type: Amount or Packs/day: How Many Years: Alcohol Use: No Frequency: Quant:
--- NOTE | 2018-12-10 14:18 | HPC ---
[facility] [address] [place] [address] PAIN MANAGEMENT CONSULTATION Name: TOSIN ABBOTT Room #: REG ANTONETTE Hernandez.#: [id number] Admission: 12/08/18 ������������������ Attend Phys: Mindi Min Discharge: ������������������ Date of : 43 Report #: [id number] THIS REPORT FOR: //name// CC: Mindi Min Oral Michelle DATE OF SERVICE: 12/08/2018 CHIEF COMPLAINT: Chronic back pain and leg pain. HISTORY OF PRESENT ILLNESS: This is a 73-year-old gentleman who returned to the pain clinic today for refill of his medications that he uses to help treat his ongoing low back pain and right leg pain. The patient reports a pain score today of 8-9, worse with standing, twisting, riding in the car or prolonged walking. He tells me that his medications are very helpful as well as ice bags. He would like a refill of his medications today. The patient does tell me that recently his yqarhdw-vi-lrd . They were riding to [place] several times and doing quite a bit of help with his gksyqj-ll-vgi in the house that did require him to take a few extra breakthrough pain pills throughout this time, he did not report this until today. ALLERGIES: DARVON, DARVOCET-N 100, BIAXIN AND METHADONE. CURRENT LIST OF MEDICATIONS: Astelin spray, oxycodone 10/325 four to five times a day, OxyContin 60 mg b.i.d., diclofenac p.r.n., Skelaxin 800 mg p.r.n., gabapentin 300 mg q.i.d., vitamin D, Flonase, Synthroid, Lovaza, latanoprost, Librax, Toprol, MiraLax, Zyrtec, Mucinex, vitamin C, calcium, Centrum Silver, Pradaxa 150 mg b.i.d., Bentyl p.r.n., Glucophage, Effexor, Hytrin, Lipitor, TriCor, Amaryl, Lasix and Flomax. PQRS: 1. The patient has a history of osteoarthritis in his wrist, back, knees and hips. Denies any rheumatoid arthritis. 2. Height is 5 feet 6 inches, weight is 269, BMI is 43. 3. VITAL SIGNS: 110/55, pulse is 76, respirations 20, oxygen sat is 98. 4. Pain score is 8-9. 5. Denies dizziness. He has fallen in the last 3 months. He does not need help walking or standing. 6. The patient is on blood thinners of Pradaxa. He does also take medicine for hypertension. 7. Opioid risk assessment tool is low. Functional assessment is 15/70. 8. Recreational drug use, he denies. He is a former smoker and does not drink alcohol. According to the prescription monitoring system, the patient is filling [address] [address] PAIN MANAGEMENT CONSULTATION Name: TOSIN ABBOTT Room #: REG ANTONETTE Harris#: [id number] Admission: 12/08/18 ������������������ Attend Phys: Mindi Min Discharge: ������������������ Date of : 43 Report #: [id number] appropriately for his medications. We will check a random drug screen on this patient today for a buccal screen. PHYSICAL EXAMINATION: GENERAL: This is a well-developed, well-nourished, obese gentleman, who appears his stated age, slightly forgetful at times throughout the conversation. He is alert and orientated, placing his pain score 8-9/10. HEENT: Normocephalic, atraumatic. Extraocular eye muscles are intact. Mucous membranes are moist. Hearing is adequate. MUSCULOSKELETAL: The patient has kyphosis and a rotund abdomen. Slight discoloration in his lower extremities below his knees. Tenderness across his lumbar spine. He walks with an antalgic gait. His lower extremity strength judged to be 4/5 bilaterally in all major muscle groups. IMPRESSION: 1. Chronic low back pain with sacroiliac joint pain. 2. Right knee pain. 3. Management of high risk medications under terms of written opioid agreement. 4. Morbid obesity. 5. Lumbar radiculopathy. We reviewed the fact that opiate medications are being used to provide analgesia adequate to support activities of daily living, not attempting to achieve a specific pain score on the 0-10 Visual Analog Scale. The current opiate medications are providing sufficient analgesia to allow the patient to participate in activities of daily living. The patient is not exhibiting any aberrant behavior suggestive of drug diversion. The patient is not having any adverse reactions to medications. The patient is not suffering from daytime somnolence or mental acuity changes. The patient is managing opiate-induced constipation with appropriate luhy-viw-wkzvmrk agents and dietary considerations. The patient was counseled on concern for caution with operating a motor vehicle while using opiate medications. A physical exam was performed and the patient's functional status was evaluated. All patients with back pain were advised against the bed rest greater than 4 days and were advised to return to normal activities. Pain score assessment was noted and the treatment plan was reviewed with the patient. All current medications, both prescribed and OTC were reviewed and reconciled on the electronic medical record. Tobacco screening was accomplished and smoking cessation was advised when indicated. BMI was noted and diet/exercise modification was recommended for all patients following outside normal parameters. I reviewed with the patient today their responsibilities to safeguard prescription medications, reviewed their responsibility to utilize medications only as prescribed by the physician. They are to seek and receive pain [facility] [address] [place] [address] PAIN MANAGEMENT CONSULTATION Name: TOSIN ABBOTT JR Room #: REG [facility].#: [id number] Admission: 12/08/18 ������������������ Attend Phys: Mindi Min Discharge: ������������������ Date of : 43 Report #: [id number] medications only from 1 physician group ( [facility]). They are to use 1 pharmacy and keep the clinic informed if they change pharmacies. Their responsibilities include making followup visits in a timely fashion and to avoid abrupt discontinuation of medication usage. Their responsibilities further include bringing their medications (bottles from the pharmacy with residual pills) to the visit for possible confirmation of pill counts and the patient understands it is their responsibility to submit to random drug screens to ensure both that the medications prescribed are present, and that no other controlled substances are present. All prescriptions provided today were generated electronically. PLAN: 1. We discussed treatment options with the patient today. The patient reports that he did have difficulty keeping his short-acting pain pills to 4-5 tablets a day due to a in the family and trying to be helpful at the ejvyhi-os-qgu's house; therefore, he has 2 medications left. He is requesting early release of this medication today. We explained to the patient the CDC guidelines as well as trying to decrease him explaining that he is a [facility] patient on long-acting medicines, but he is on a very high dose. According to the CDC guidelines, the patient's MME is 240, which is a decrease of where he was before. We explained to the patient we are not able to release his medications early. He will have to make do with what he has until he is able to fill his prescriptions in 2 days. The patient verbalizes understanding. MEDICINES: 1. OxyContin 30 mg tablets, 2 in the morning and 2 at night, #120 with one additional refill and oxycodone 10/325, #135 for today and 4-week release. Scripts were given. 2. One year supply of gabapentin 300 mg, #360 with 3 additional refills and Skelaxin 800 mg, #120 with 2 additional refills were given for mail off. 3. We will check a buccal drug screen as a random screen today. 4. The patient and family also discussed CBD with me. I explained to them the difference between CBD and THC. If the patient is willing to try this that is fine with our office and explained to them that some people find it very beneficial and others do not find much benefit in CBD oil. They verbalized understanding. They are not interested in medical marijuana, just the CBD oil. 5. Dr. Antolin Godinez did come and see the patient and collaborated care today. The patient will return in 2 months for followup. ��������������������������������������������� <ELECTRONICALLY SIGNED> ���������������������������������������� By: Mindi Min ��������������������������������������������� 12/10/18 1418 [id number] Mindi Min /alex
== END ==
LOC: PAIN 06:50
DX: M54.16 Radiculopathy, lumbar region (principal); E66.01 Morbid (severe) obesity due to excess calories; M53.3 Sacrococcygeal disorders, not elsewhere classified; M25.561 Pain in right knee; Z79.899 Other long term (current) drug therapy; Z79.891 Long term (current) use of opiate analgesic; Z88.8 Allergy status to other drugs, medicaments and biological substances

== ENCOUNTER → 2019-03-02 | Outpatient (CLI) | payer OTHER ==
[~2019-03-02] VITALS: Ht 167.6 cm; Wt 118.4 kg
[~2019-03-02] MED LIST changes: +ARICEPT10 M1 PO; +NEURONTIN300 MG PO; +VOLTAREN GEL 1100 G1 TOP
[2019-03-02 09:29] VITALS: BP 135/64
--- NOTE | 2019-03-02 09:49 | NUR ---
Pain Clinic Assessment: 1. History of Osteoarthritis: DENIES History of Rheumatoid Arthritis: DENIES 2. Height: 5 ft. 6 in. 167.6 cm. Weight: 261.0 lb. oz. 118.389 kg. Patient's BMI: 42.1 3. Vital Signs: BP: 135/64 Pulse: 102 Resp: 18 Temp: 02 Sat: 98 ECG Mon: 4. Pain Intensity: 8-9 5. Fall Risk: Dizziness: N Needs help standing or walking: Y Fallen in the last 3 months: Y Fall risk comments: 6. Patient on Blood Thinner: Dabigatran Etex (Pradaxa) 7. History of Hypertension: Y 8. Opioid Therapy greater than 6 weeks: Y Opiate Contract Signed: 11/09/15 9. Risk Assessment Tool Provided: LOW RISK-1 10. Functional Assessment Tool: 11. Recreational Drug Use: Never Drug Type: Tobacco Use: Former Smoker Tobacco Type: Amount or Packs/day: How Many Years: Alcohol Use: No Frequency: Quant:
--- NOTE | 2019-03-03 15:16 | HPC ---
[facility] [place] [address] PAIN MANAGEMENT CONSULTATION Name: TOSIN ABBOTT Room #: REG [facility] Steven#: [id number] Admission: 03/02/19 Attend Phys: Mindi Min Discharge: Date of : 41 Report #: [id number] THIS REPORT FOR: //name// CC: Mindi Martinez DO DATE OF SERVICE: 03/02/2019 CHIEF COMPLAINT: Chronic back pain and leg pain. HISTORY OF PRESENT ILLNESS: This is a 73-year-old gentleman who returns to the pain clinic today for refill of his medications. He is here present with his . He is reporting a pain score today of 8-9, which is fairly average number per his report of his ongoing low back pain and right leg pain. He occasionally does have some left leg pain and is a chronic aching, burning pain that is worse with movement, standing and walking. He feels his medications are beneficial as well as ice. He would like refills of his medication today. reports that the patient recently started on some Aricept at a very low dose. He has been on this less than a month. She has not seen any real benefit as of yet with the patient's memory. She is wondering if we continue to decrease his pain medications, which we have in the past. If there is another alternative such as acupuncture or hypnosis that he may also try in aiding with his pain control. ALLERGIES: DARVON, BIAXIN and METHADONE. CURRENT LIST OF MEDICATIONS: Aricept 10 mg daily, Skelaxin 800 mg p.r.n., OxyContin 60 mg b.i.d., oxycodone 10/325 four-five times a day and see extensive rest of his list. PQRS: 1. Has a history of osteoarthritis in his wrist, back, knees and hips. Denies any rheumatoid arthritis. 2. Height is 5 feet 6 inches, weight is 261. BMI is 42. 3. Vital signs 135/64, pulse is 102, respirations 18, oxygen sat is 98. 4. Pain score is 8-9. 5. Denies dizziness. Does use a cane for walking, has fallen in the last 3 months. 6. The patient is on Pradaxa and also takes medicine for hypertension. 7. Opioid therapy is greater than 6 weeks; therefore, an opioid signed contract is on the chart. Risk assessment tool is low. Functional assessment is 15/70. 8. Recreational drug use, he denies. He is a former smoker [place] [address] PAIN MANAGEMENT CONSULTATION Name: SCARTOSIN NORTH Room #: REG [facility] Steven#: [id number] Admission: 03/02/19 Attend Phys: Mindi Min Discharge: Date of : 43 Report #: [id number] According to the prescription monitoring system, the patient is filling appropriately. He is due to fill his medications today. There is a recent drug screen on the chart as well. PHYSICAL EXAMINATION: GENERAL: This is a well-developed, well-nourished, obese gentleman who appears his stated age. He is alert and orientated, though forgetful and rambling in some of his speech throughout the visit. His pain score is 8-9/10. HEENT: Normocephalic, atraumatic. Extraocular eye muscles are intact. MUSCULOSKELETAL: This is a very kyphotic gentleman with a rotund abdomen. He has pain across his lumbar spine that does radiate into his right leg today. He walks with an antalgic gait using a cane. Slight discoloration in his lower extremities below the knees bilaterally with 1+ edema present in his left leg. His lower extremity strength judged to be 4/5. IMPRESSION: 1. Chronic low back pain with sacroiliac joint discomfort. 2. Lumbar radiculopathy. 3. Right knee pain. 4. Morbid obesity. 5. Memory issues, recently started on Aricept. 6. Management of high-risk medications under terms of written opioid agreement. We reviewed the fact that opiate medications are being used to provide analgesia adequate to support activities of daily living, not attempting to achieve a specific pain score on the 0-10 Visual Analog Scale. The current opiate medications are providing sufficient analgesia to allow the patient to participate in activities of daily living. The patient is not exhibiting any aberrant behavior suggestive of drug diversion. The patient is not having any adverse reactions to medications. The patient is not suffering from daytime somnolence or mental acuity changes. The patient is managing opiate-induced constipation with appropriate aacl-ybo-ruyvwup agents and dietary considerations. The patient was counseled on concern for caution with operating a motor vehicle while using opiate medications. A physical exam was performed and the patient's functional status was evaluated. All patients with back pain were advised against the bed rest greater than 4 days and were advised to return to normal activities. Pain score assessment was noted and the treatment plan was reviewed with the patient. All current medications, both prescribed and OTC were reviewed and reconciled on the electronic medical record. Tobacco screening was accomplished and smoking cessation was advised when indicated. BMI was noted and diet/exercise modification was recommended for all patients following outside normal parameters. [address] [address] PAIN MANAGEMENT CONSULTATION Name: TOSIN ABBOTT JR Room #: REG [facility]#: [id number] Admission: 03/02/19 Attend Phys: Mindi Min Discharge: Date of : 43 Report #: [id number] I reviewed with the patient today their responsibilities to safeguard prescription medications, reviewed their responsibility to utilize medications only as prescribed by the physician. They are to seek and receive pain medications only from 1 physician group ( [facility]). They are to use 1 pharmacy and keep the clinic informed if they change pharmacies. Their responsibilities include making followup visits in a timely fashion and to avoid abrupt discontinuation of medication usage. Their responsibilities further include bringing their medications (bottles from the pharmacy with residual pills) to the visit for possible confirmation of pill counts and the patient understands it is their responsibility to submit to random drug screens to ensure both that the medications prescribed are present, and that no other controlled substances are present. All prescriptions provided today were generated electronically. PLAN: 1. We discussed treatment options with the patient and family today. We will continue him at his current OxyContin level, which is extremely high according to the CDC guidelines. We will refill his OxyContin at 30 mg 2 tablets twice a day for today for an 8-week as well as his Percocet , #135. His current MME is 247, which is very high for this [facility] patient that he continues to function and we have decreased him with his strength this year. We will continue to try and decrease him slightly as we are able. 2. We gave the names of numerous acupuncturists as well as [employer] to the for alternative treatments for the patient's pain. She knows that we will be decreasing him again in trying to find alternatives to helping control some of his low back pain. 3. We did talk about CBD oil, again, which we have had discussions in the past. They have not tried this medication currently or changing medication to modality yet, but they continue to do research and are thinking about this treatment option as well. 4. The patient denies any problems with constipation from all of his opioids. 5. Dr. Antolin Godinez did see the patient as well today and collaborated care. The patient will return in 3 months. <ELECTRONICALLY SIGNED> By: Mindi Min 03/03/19 1516 [id number] Mindi Min /nt
== END ==
LOC: PAIN 06:53
DX: G89.29 Other chronic pain (principal); M54.16 Radiculopathy, lumbar region; E66.01 Morbid (severe) obesity due to excess calories; I10 Essential (primary) hypertension; Z79.891 Long term (current) use of opiate analgesic; Z88.8 Allergy status to other drugs, medicaments and biological substances; Z79.899 Other long term (current) drug therapy

== ENCOUNTER → 2019-05-25 | Outpatient (CLI) | payer OTHER ==
[~2019-05-25] VITALS: Ht 167.6 cm; Wt 116.2 kg
[~2019-05-25] MED LIST changes: +OXYBUTYNIN 5 MG5 M2 PO
[2019-05-25 09:23] VITALS: BP 126/57
--- NOTE | 2019-05-25 09:39 | NUR ---
Pain Clinic Assessment: 1. History of Osteoarthritis: DENIES History of Rheumatoid Arthritis: DENIES 2. Height: 5 ft. 6 in. 167.6 cm. Weight: 256.2 lb. oz. 116.212 kg. Patient's BMI: 41.4 3. Vital Signs: BP: 126/57 Pulse: 85 Resp: 20 Temp: 02 Sat: 100 ECG Mon: 4. Pain Intensity: 6 WITH MED. 8 WITHOUT 5. Fall Risk: Dizziness: N Needs help standing or walking: Y Fallen in the last 3 months: N Fall risk comments: 6. Patient on Blood Thinner: Dabigatran Etex (Pradaxa) 7. History of Hypertension: Y 8. Opioid Therapy greater than 6 weeks: Y Opiate Contract Signed: 11/09/15 9. Risk Assessment Tool Provided: LOW RISK-1 10. Functional Assessment Tool: 11. Recreational Drug Use: Never Drug Type: Tobacco Use: Former Smoker Tobacco Type: Amount or Packs/day: How Many Years: Alcohol Use: No Frequency: Quant:
--- NOTE | 2019-05-26 08:33 | HPC ---
[facility] [address] [place] [address] PAIN MANAGEMENT CONSULTATION Name: TOSIN ABBOTT Room #: REG [facility] Steven#: [id number] Admission: 05/25/19 Attend Phys: Mindi Min Discharge: Date of : 43 Report #: [id number] THIS REPORT FOR: //name// CC: Mindi Martinez DO DATE OF SERVICE: 05/25/2019 CHIEF COMPLAINT: Chronic low back pain and bilateral leg pain. HISTORY OF PRESENT ILLNESS: This is a 73-year-old gentleman who returns to the pain clinic today with his who is present and assisting with answering questions today. He does report that his pain is a 6/10 with his medications. It is in his low back that does radiate down his bilateral legs, but more significantly on the right. It is a constant, burning, occasionally sharp pain. It is worse with any activity. He feels that is progressively getting worse. He is unable to go to the grocery store as he used to because his pain has increased with his activity. He does report that his medications as well as ice are beneficial. He reports that he had taken a few extra breakthrough pain medicines to get him through [facility], now has been taking only 3 of his Percocet a day to make it to his appointment today. He has not out of his medications by making this adjustment, but he feels that taking his normal Percocet 4 times a day is more beneficial than the 3. Today, he is requesting refills of all of his medications. Per his 's report, he has been having some ongoing wound issues in his right calf due to vascular issues. He did see his primary care doctor regarding this. It is slowly getting better. He has also been having some urinary issues and recently started on new medication for that as well. He continues on his Aricept. He is answering questions more appropriately at times today than his last visit, though at times he does remain confused and does seek guidance from his . ALLERGIES: DARVON, BIAXIN AND METHADONE. CURRENT LIST OF MEDICATIONS: Oxybutynin 5 mg b.i.d., OxyContin 60 mg b.i.d., oxycodone 10/325 every 4 hours p.r.n., diclofenac gel, gabapentin, Skelaxin, Aricept, vitamin D, Flonase, Synthroid, omega 3, Librax, Toprol, MiraLax, vitamin C, calcium, multivitamin, Pradaxa, Bentyl, metformin, Effexor, Hytrin, Lipitor, TriCor, Amaryl, Lasix, Flomax. PQRS: 1. He has a history of osteoarthritis in his back, knees, hips. Denies any rheumatoid arthritis. [facility] [address] [place] [address] PAIN MANAGEMENT CONSULTATION Name: SCARTOSIN KAT Room #: REG [facility] Harris#: [id number] Admission: 05/25/19 Attend Phys: Mindi Min Discharge: Date of : 43 Report #: [id number] 2. Height is 5 feet 6 inches, weight is 256, BMI is 41. 3. Vital signs 126/57, pulse is 85, respirations 20, oxygen sat is 100. 4. Pain score 6/10. 5. Denies dizziness. Does use a cane at all times. Has not fallen in the last 3 months. 6. The patient is on Pradaxa as well as medicines for hypertension. 7. Opioid therapy is greater than 6 weeks; therefore, an opioid signed contract is on the chart. Risk assessment tool is low. Functional assessment is . 8. Recreational drug use, he denies. He is a former smoker and does not drink alcohol. According to the prescription monitoring system, the patient is due to fill his medications, filling them appropriately by Dr. Antolin Godinez. He is on a high morphine milliequivalent that he has been stable on this dose for quite some time. We have decreased him slightly, but his pain does continue to be problematic for him. PHYSICAL EXAMINATION: GENERAL: This is a well-developed, well-nourished, obese 73-year-old gentleman who is alert and orientated, though forgetful at times seeking guidance from his for clarification on certain items. HEENT: Normocephalic, atraumatic. Extraocular eye muscles are intact. MUSCULOSKELETAL: He is a kyphotic gentleman with a rotund abdomen. He has pain in his lumbar spine that radiates into his right hip and down his right leg. He has an antalgic gait using a cane at all times. Lower extremities have 1+ edema. He has David wrap on his right leg with a bandage present over a slow healing sore. His lower extremity strength is deconditioned at 4/5. IMPRESSION: 1. Chronic low back pain. 2. Lumbar radiculopathy. 3. Bilateral knee pain. 4. Morbid obesity. 5. Memory issues, on Aricept. 6. Management of high risk medications under terms of written opioid agreement. PLAN: 1. We discussed treatment options with the patient today. The patient has noticed an increase in his pain with any activity. He reports he is unable to go to the grocery store without using a scooter due to pain issues. He feels that the current regimen is beneficial in dealing with some of his pain, though he is wishing he could have a slight increase. I explained to the patient that we are on the maximum level that we are able to prescribe for him. I encouraged him to be as active as he is able and to continue to use his cane and scooter when he is out to help with his mobility. The patient verbalizes understanding. 2. Scripts sent for his oxycodone 30 mg 2 b.i.d., quantity 120 and oxycodone [address] [address] PAIN MANAGEMENT CONSULTATION Name: SCARTOSIN NORTH Room #: REG [facility] Harris#: [id number] Admission: 05/25/19 Attend Phys: Mindi Min Discharge: Date of : 41 Report #: [id number] /325, #135 will be sent electronically by Dr. Antolin Godinez for 3 months to his pharmacy. 3. I will prescribe his gabapentin 300 mg, #360 taking one tablet 4 times a day with 3 additional refills. The family will send this off for a mail order for a 1-year prescription filling every 3 months. 4. The patient denies any problems with constipation. He does take rhul-vyc-yiywkds regimen that is beneficial. 5. The patient will return in 3 months for followup. Patient was seen in collaboration with Dr Godinez. <ELECTRONICALLY SIGNED> By: Mindi Min 05/26/19 0833 1124 Ankit rodriguez
== END ==
LOC: PAIN 06:55
DX: M54.16 Radiculopathy, lumbar region (principal); M25.561 Pain in right knee; M25.562 Pain in left knee; G89.29 Other chronic pain; E66.01 Morbid (severe) obesity due to excess calories; Z88.8 Allergy status to other drugs, medicaments and biological substances; Z79.891 Long term (current) use of opiate analgesic; Z79.899 Other long term (current) drug therapy

== ENCOUNTER → 2019-08-13 | Outpatient (CLI) | payer OTHER | LOC: PAIN 07:32 | DX: M54.5 Low back pain (principal); M79.604 Pain in right leg; M79.605 Pain in left leg; E66.9 Obesity, unspecified; M25.561 Pain in right knee; M25.562 Pain in left knee; F11.20 Opioid dependence, uncomplicated; M54.10 Radiculopathy, site unspecified; Z79.899 Other long term (current) drug therapy ==

== ENCOUNTER → 2019-11-05 | Outpatient (CLI) | payer OTHER ==
[~2019-11-05] VITALS: Ht 167.6 cm; Wt 111.3 kg
[~2019-11-05] MED LIST changes: +METAXALL800 MG PO
[2019-11-05 10:09] VITALS: BP 131/79
--- NOTE | 2019-11-05 10:18 | NUR ---
Pain Clinic Assessment: 1. History of Osteoarthritis: DENIES History of Rheumatoid Arthritis: DENIES 2. Height: 5 ft. 6 in. 167.6 cm. Weight: 245.4 lb. oz. 111.313 kg. Patient's BMI: 39.6 3. Vital Signs: BP: 131/79 Pulse: 71 Resp: 18 Temp: 02 Sat: 98 ECG Mon: 4. Pain Intensity: 9 5. Fall Risk: Dizziness: N Needs help standing or walking: N Fallen in the last 3 months: N Fall risk comments: 6. Patient on Blood Thinner: Dabigatran Etex (Pradaxa) 7. History of Hypertension: Y 8. Opioid Therapy greater than 6 weeks: Y Opiate Contract Signed: 11/09/15 9. Risk Assessment Tool Provided: LOW RISK-1 10. Functional Assessment Tool: 55/70 11. Recreational Drug Use: Never Drug Type: Tobacco Use: Former Smoker Tobacco Type: Amount or Packs/day: How Many Years: Alcohol Use: Past use Frequency: Quant:
--- NOTE | 2019-11-10 07:56 | HPC ---
[facility] [address] [address] PAIN MANAGEMENT CONSULTATION Name: TOSIN ABBOTT Room #: REG [facility] Mary.#: [id number] Admission: 11/05/19 Attend Phys: Mindi Min Discharge: Date of : 43 Report #: [id number] THIS REPORT FOR: cc: Oral Martinez Ronald D. DO Hocker, Amanda CNS ~ CC: Antolin Godinez MD DATE OF SERVICE: 11/05/2019 CHIEF COMPLAINT: Chronic low back pain and bilateral leg pain. HISTORY OF PRESENT ILLNESS: This is a 74-year-old gentleman who is well known to the pain clinic, has been seeing Dr. Antolin Godinez for several years. He is a [facility] patient on high-dose opioids. Today, he is here for a medication refill stating his pain score is 9/10. At one point during our conversation, he reports that he cannot do anything because it is "tough being a human being right now" due to his difficulty in pain. He has recently in the last 6 months started on some Aricept. At times throughout the conversation, he did ramble about different things, then at other times very alert and orientated telling me about his back pain that radiates into his legs. Today, he reports it as a 9/10, worse with twisting, walking and standing. He uses a cane for ambulation. He feels the medication for the most part are helpful, though as I said at times he feels they are not as beneficial as they had been in the past and would like to go back up to his previous dose. His , Ana, is here and explains that he does take his medicine at various times throughout the day. When his pain pills are running lower for his short acting, she has been giving him his Skelaxin for muscle spasms in his lower back which seems beneficial. ALLERGIES: DARVON, BIAXIN, METHADONE. CURRENT LIST OF MEDICATIONS: Oxycodone 10/325 p.r.n., OxyContin 60 mg b.i.d., gabapentin 300 mg 4 times a day, and see the rest of the extensive list in the chart. PQRS: 1. Negative for osteoarthritis. He is morbidly obese at 39.6, though he has decreased his weight by 11 pounds since our last visit. His height is 5 feet 6 inches, weight is 245. 2. Vital signs, 131/79, pulse is 71, respirations 18, oxygen sat is 98, pain score is 9/10. 3. Fall risk. Denies dizziness. Does use a cane for ambulation. Has not fallen in the last 3 months. The patient is on Pradaxa as well as medicines for hypertension. His opioid therapy is greater than 6 weeks; therefore, an opioid [address] [address] PAIN MANAGEMENT CONSULTATION Name: TOSIN ABBOTT Room #: REG [facility] Harris#: [id number] Admission: 11/05/19 Attend Phys: Mindi Min Discharge: Date of : 43 Report #: [id number] signed contract is on the chart. Risk assessment is low. Functional assessment is 55/70. 4. Recreational drug use, he denies. He is a former smoker and does not drink alcohol. According to the prescription monitoring system, the patient is due to fill his medications today. He does fill them in a timely fashion. He does have a high morphine mEq according to the CDC guidelines of 265. He is a [facility] patient of Dr. Villagran. We have tapered him slowly and will possibly be at his lowest most effective dose. PHYSICAL EXAMINATION: GENERAL: This is a pleasant 74-year-old gentleman, quite loquacious in his speech, rambling at times, alert at others. He does not appear to be overmedicated. HEENT: Normocephalic, atraumatic. Extraocular eye muscles are intact. He is wearing a mask. MUSCULOSKELETAL: Pain in his lumbosacral region of his spine. He has pain with all movements in his hips, knees. He uses a cane and his gait is antalgic. Straight leg raising causes discomfort in his hips. IMPRESSION: 1. Chronic low back pain with radiculopathy. 2. Chronic intractable pain. 3. Bilateral knee pain. 4. Morbid obesity. 5. Complex medical management under terms of written opioid agreement. PLAN: 1. We discussed treatment options with the patient today. The patient finds his medication beneficial most of the time. He does have pain following the L5-S1 dermatomal distribution in his legs and at times he finds it more difficult to walk. I encouraged the patient to use a walker and not the cane to see if that is more beneficial in helping reduce some of his back and leg pain, giving him more support. 2. We did discuss increasing his Skelaxin use when he is having tightness in his lumbar spine. Seems that he uses that very sporadically. I will refill that prescription for 800 mg, #120 with 2 additional refills today. 3. We did discuss the Voltaren gel. The patient complains of arthritic changes in his hips and knees. I encouraged him to use this more often. He has used it in the past very sporadically. We will send a script as well. 4. Dr. Julien Centeno did refill his OxyContin 30 mg tablets, #120 for today for an 8-week supply as well as his Percocet 10/325, #135 for 3 months. 5. The patient has had a weight loss of 11 pounds since our last visit. I encouraged the to keep track of his weight. If it continues to decrease, to contact his primary care doctor. The patient does state that he has an [facility] [address] [address] PAIN MANAGEMENT CONSULTATION Name: TOSIN ABBOTT Room #: REG [facility] Harris#: [id number] Admission: 11/05/19 Attend Phys: Mindi Min Discharge: Date of : 41 Report #: [id number] appetite and continues to eat as he has in the past. 6. The patient seen in collaboration today with Dr. Julien Centeno who is covering for Dr. Godinez. <ELECTRONICALLY SIGNED> By: Mindi Min 11/10/19 0756 [id number] [id number] Mindi Min /alex
== END ==
LOC: PAIN 06:45
PROVIDERS: ATTEND Clinical Nurse Specialist Adult Health
DX: M54.16 Radiculopathy, lumbar region (principal); M25.561 Pain in right knee; M25.562 Pain in left knee; G89.29 Other chronic pain; E66.01 Morbid (severe) obesity due to excess calories; F11.20 Opioid dependence, uncomplicated; Z79.899 Other long term (current) drug therapy

== ENCOUNTER → 2020-01-28 | Outpatient (CLI) | payer OTHER ==
[~2020-01-28] VITALS: Ht 167.6 cm; Wt 110.6 kg
[~2020-01-28] MED LIST changes: +PERCOCET 10-321 EAC1 PO
[2020-01-28 09:35] VITALS: BP 139/79
--- NOTE | 2020-01-28 09:57 | NUR ---
Pain Clinic Assessment: 1. History of Osteoarthritis: DENIES History of Rheumatoid Arthritis: DENIES 2. Height: 5 ft. 6 in. 167.6 cm. Weight: 243.8 lb. oz. 110.587 kg. Patient's BMI: 39.4 3. Vital Signs: BP: 139/79 Pulse: 65 Resp: 20 Temp: 02 Sat: 100 ECG Mon: 4. Pain Intensity: 9 5. Fall Risk: Dizziness: N Needs help standing or walking: Y Fallen in the last 3 months: N Fall risk comments: 6. Patient on Blood Thinner: Dabigatran Etex (Pradaxa) 7. History of Hypertension: Y 8. Opioid Therapy greater than 6 weeks: Y Opiate Contract Signed: 11/09/15 9. Risk Assessment Tool Provided: LOW RISK-1 10. Functional Assessment Tool: 55/70 11. Recreational Drug Use: Never Drug Type: Tobacco Use: Former Smoker Tobacco Type: Amount or Packs/day: How Many Years: Alcohol Use: Past use Frequency: Quant:
--- NOTE | 2020-01-28 13:30 | HPC ---
[facility] [address] [place] [address] PAIN MANAGEMENT CONSULTATION Name: TOSIN ABBOTT [id number] Admission: 01/28/20 Attend Phys: Mindi Min Discharge: Date of : 43 Report #: [id number] THIS REPORT FOR: cc: Oral Martinez Ronald D. DO Hocker, Amanda CNS ~ CC: Antolin Godinez MD DATE OF SERVICE: 01/28/2020 CHIEF COMPLAINT: Chronic low back pain and bilateral leg pain. HISTORY OF PRESENT ILLNESS: This is a 74-year-old gentleman who is here with his today for a visit to discuss his opioid medications and obtain refills. He reports that his back is slowly increasing in pain. He is unable to do as much activities as he had in the past.He is not able to sit in the car for long periods of time. He reports he has pain in his right leg and hip as well, but most problematic is his lower back, rating his pain score a 9/10 today, which seems to be an average score that he does rate his pain at previous visits as well. He continues on his oxycodone and OxyContin taking them in divided doses around the clock. The patient did try some Voltaren gel on his lumbar spine and did not find it effective. They are here today to discuss possibly increasing his medication or other alternatives for pain. He denies problems with constipation, does have some daytime somnolence as a result of his medication. ALLERGIES: DARVON, BIAXIN AND METHADONE. CURRENT LIST OF MEDICATIONS: Skelaxin, OxyContin 60 mg b.i.d., Oxycodone 10/325 p.r.n., gabapentin, oxybutynin, Aricept, vitamin D, Flonase, Synthroid, Lovaza, Librax, Toprol, MiraLax, Zyrtec, Mucinex, Pradaxa, Glucophage, Effexor, Hytrin, Lipitor, TriCor, Lasix, Flomax. PQRS: 1. He is negative for osteoarthritis or rheumatoid arthritis. 2. Height is 5 feet 6 inches, weight is 243, BMI is 39. 3. Vital signs; blood pressure 139/79, pulse is 65, respirations 20, oxygen sat is 100, pain score is 9/10. 4. Fall risk. Denies dizziness. Does need assistance with ambulation. Has not fallen in the last 3 months. 5. He is on Pradaxa as well as medicines for hypertension. 6. His opioid therapy is greater than 6 weeks; therefore, an opioid signed contract is on the chart. Risk assessment is low. Functional assessment is 55/70. 7. Recreational drug use, he denies. He is a former smoker and does not drink alcohol. According to the prescription monitoring system, his level of morphine [address] [address] PAIN MANAGEMENT CONSULTATION Name: TOSIN ABBOTT Room #: REG ANTONETTE Harris#: [id number] Admission: 01/28/20 Attend Phys: Mindi Min Discharge: Date of : 43 Report #: [id number] milliequivalent is quite high at 264. He is a [facility] patient of Dr. Antolin Villagran. We have made efforts to taper his medicines unsuccessfully throughout the years. We do have a drug screen on the chart. PHYSICAL EXAMINATION: GENERAL: This is a pleasant, loquacious, morbidly obese, kyphotic 74-year-old gentleman who appears his stated age, placing his current pain score at 9/10 today. He does show signs of dementia which he takes medication for. HEENT: Normocephalic, atraumatic. Extraocular eye muscles are intact. He is wearing a mask. MUSCULOSKELETAL: He has pain across his lumbosacral region of his spine that radiates down his right leg. His gait is antalgic. He has pain with all movements, significant kyphosis. Straight leg raising causes difficulty in his bilateral legs, greater on the right. He uses a cane with ambulation. IMPRESSION: 1. Chronic low back pain with radiculopathy. 2. Chronic intractable pain. 3. Bilateral knee pain. 4. Morbid obesity. 5. Complex medical management under terms of written opioid agreement. We reviewed the fact that opiate medications are being used to provide analgesia adequate to support activities of daily living, not attempting to achieve a specific pain score on the 0-10 Visual Analog Scale. The current opiate medications are providing sufficient analgesia to allow the patient to participate in activities of daily living. The patient is not exhibiting any aberrant behavior suggestive of drug diversion. The patient is not having any adverse reactions to medications. The patient is not suffering from daytime somnolence or mental acuity changes. The patient is managing opiate-induced constipation with appropriate uyug-hhe-mwpfosf agents and dietary considerations. The patient was counseled on concern for caution with operating a motor vehicle while using opiate medications. PLAN: 1. We discussed treatment options with the patient today. I explained to the patient that he may be suffering from hyperalgesia that is why his pain may be increasing. We do have an option of trying to decrease his medication and see if this may help rest some receptors. Patient is not willing to try this option presently. 2. He did find that the diclofenac gel was not effective in helping control his pain. It "made him weird out" the sensation. We did discuss CBD oil. It does come in a salve as well as a roll-on. They are going to stop at the store on their way home and see about purchasing this and trying this on his lower back, to see if it is beneficial. 3. I encouraged the patient to make sure he does space his medicine out [facility] [address] [place] [address] PAIN MANAGEMENT CONSULTATION Name: SCARTOSIN [facility] #: [facility] [id number] Admission: 01/28/20 Attend Phys: Mindi Min Discharge: Date of : 43 Report #: [id number] throughout the day, not taking his breakthrough pain medicine and long-acting at the same time. Per his 's report, he does not take them together. Scripts will be sent electronically by Dr. Godinez for his OxyContin 30 mg 2 tablets b.i.d. as well as his oxycodone 10/, #135. These will be sent for 3 months due to a hardship for her getting him here, he does suffer from dementia. 4. The patient does take Skelaxin. He usually takes one tablet a day. I encouraged the to try and increase this to twice a day to see if that is more beneficial when he is complaining of some pain in the later afternoon hours. They do not need refills of this medication today. 5. The patient is seen today in collaboration with Dr. Antolin Godinez. He will return in 3 months. <ELECTRONICALLY SIGNED> By: Mindi Min 01/28/20 1330 [id number] 1203 Mindi Min /nt
== END ==
LOC: PAIN 06:52
PROVIDERS: ATTEND Clinical Nurse Specialist Adult Health
DX: M54.16 Radiculopathy, lumbar region (principal); M79.604 Pain in right leg; M79.605 Pain in left leg; G89.29 Other chronic pain; E66.01 Morbid (severe) obesity due to excess calories; F11.20 Opioid dependence, uncomplicated; Z88.8 Allergy status to other drugs, medicaments and biological substances; Z79.899 Other long term (current) drug therapy

== ENCOUNTER → 2020-04-18 | Outpatient (CLI) | payer OTHER ==
[~2020-04-18] VITALS: Ht 167.6 cm; Wt 108.4 kg
[2020-04-18 09:30] VITALS: BP 133/67
--- NOTE | 2020-04-18 09:52 | NUR ---
Pain Clinic Assessment: 1. History of Osteoarthritis: DENIES History of Rheumatoid Arthritis: DENIES 2. Height: 5 ft. 6 in. 167.6 cm. Weight: 239.0 lb. oz. 108.410 kg. Patient's BMI: 38.6 3. Vital Signs: BP: 133/67 Pulse: 77 Resp: 20 Temp: 02 Sat: 100 ECG Mon: 4. Pain Intensity: 8 TO 9 5. Fall Risk: Dizziness: N Needs help standing or walking: Y Fallen in the last 3 months: N Fall risk comments: 6. Patient on Blood Thinner: Dabigatran Etex (Pradaxa) 7. History of Hypertension: Y 8. Opioid Therapy greater than 6 weeks: Y Opiate Contract Signed: 11/09/15 9. Risk Assessment Tool Provided: LOW RISK-1 10. Functional Assessment Tool: 55/70 11. Recreational Drug Use: Never Drug Type: Tobacco Use: Former Smoker Tobacco Type: Amount or Packs/day: How Many Years: Alcohol Use: Past use Frequency: Quant:
--- NOTE | 2020-04-19 07:55 | HPC ---
[facility] [address] [address] PAIN MANAGEMENT CONSULTATION Name: TOSIN ABBOTT JR Room #: REG ANTONETTE Harris#: [id number] Admission: 04/18/20 Attend Phys: Mindi Min Discharge: Date of : 43 Report #: [id number] THIS REPORT FOR: cc: Oral Martinez Ronald D. DO Hocker,Mindi HERNÁNDEZ ~ DATE OF SERVICE: 04/18/2020 CHIEF COMPLAINT: Chronic low back pain and bilateral leg pain. HISTORY OF PRESENT ILLNESS: This is a 74-year-old gentleman who returns to the pain clinic today for renewal of his opioid medications. Today, he is reporting a pain of 8-9, located in his lower back and his right leg. He does have ongoing right shoulder pain and hand pain as well. Today, he reports his pain has been elevated in the past month. He is angry at times throughout this visit discussing his pain, not understanding why it keeps getting worse. The patient does report that his pain is worse with walking, he utilizes a cane and prolonged standing or riding in the car. He believes his medication is beneficial, but would like increasing of his medications or other options. His is present with him throughout the visit today helping with some questions and answers. The patient denies any constipation issues as a result of his medication. ALLERGIES: DARVOCET, BIAXIN, METHADONE. CURRENT LIST OF MEDICATIONS: Percocet 10/325 every 4 hours, OxyContin 60 mg b.i.d., Skelaxin p.r.n., gabapentin 300 mg q.i.d. and see extensive list in the computer. PQRS: 1. Negative for osteoarthritis or rheumatoid arthritis. 2. Height is 5 feet 6 inches, weight is 239, BMI is 38. 3. Vital signs 133/67, pulse is 77, respirations 20, oxygen sat is 100. 4. Pain score is 8-9. 5. Denies dizziness. Does need assistance with walking, utilizes a cane. 6. The patient is on Pradaxa as well as medicines for hypertension. 7. Opioid therapy is greater than 6 weeks; therefore, an opioid signed contract is on the chart. Risk assessment is low. Functional assessment is 55/70. 8. Recreational drug use, he denies. He is not a smoker and does not drink alcohol. According to the prescription monitoring system, the patient is filling appropriately in a timely fashion. He is due to fill these later in the week. PHYSICAL EXAMINATION: GENERAL: This is alert and orientated slightly angry [place] [address] PAIN MANAGEMENT CONSULTATION Name: ABBOTTTOSIN Room #: [facility] ANTONETTE Harris#: [id number] Admission: 04/18/20 Attend Phys: Mindi Min Discharge: Date of : 43 Report #: [id number] morbidly obese kyphotic 74-year-old gentleman who appears his stated age, placing his current pain score at 8-9 today. HEENT: Normocephalic, atraumatic. Extraocular eye muscles are intact. He is wearing a mask. MUSCULOSKELETAL: He has significant kyphosis. Pain is in the lumbosacral region of his spine that radiates down his right leg. It is increased with movement. He has an antalgic gait and uses a cane for ambulation. His lower extremity strength is symmetrical at 5/5. IMPRESSION: 1. Low back pain with radiculopathy. 2. Chronic intractable pain. 3. Morbid obesity. 4. Bilateral knee pain. 5. Dementia with worsening signs. 6. Complex medical management under terms of written opioid agreement. We reviewed the fact that opiate medications are being used to provide analgesia adequate to support activities of daily living, not attempting to achieve a specific pain score on the 0-10 Visual Analog Scale. The current opiate medications are providing sufficient analgesia to allow the patient to participate in activities of daily living. The patient is not exhibiting any aberrant behavior suggestive of drug diversion. The patient is not having any adverse reactions to medications. The patient is not suffering from daytime somnolence or mental acuity changes. The patient is managing opiate-induced constipation with appropriate owdc-tjl-wusenej agents and dietary considerations. The patient was counseled on concern for caution with operating a motor vehicle while using opiate medications. A physical exam was performed and the patient's functional status was evaluated. All patients with back pain were advised against the bed rest greater than 4 days and were advised to return to normal activities. Pain score assessment was noted and the treatment plan was reviewed with the patient. All current medications, both prescribed and OTC were reviewed and reconciled on the electronic medical record. Tobacco screening was accomplished and smoking cessation was advised when indicated. BMI was noted and diet/exercise modification was recommended for all patients following outside normal parameters. I reviewed with the patient today their responsibilities to safeguard prescription medications, reviewed their responsibility to utilize medications only as prescribed by the physician. They are to seek and receive pain medications only from 1 physician group ([facility]). They are to use 1 pharmacy and keep the clinic informed if they change pharmacies. Their responsibilities include making followup visits in a timely fashion and to avoid abrupt discontinuation of medication usage. Their responsibilities further [address] [address] PAIN MANAGEMENT CONSULTATION Name: TOSIN ABBOTT JR Room #: REG [facility]#: [id number] Admission: 04/18/20 Attend Phys: Mindi BETTY Pako Discharge: Date of : 43 Report #: [id number] include bringing their medications (bottles from the pharmacy with residual pills) to the visit for possible confirmation of pill counts and the patient understands it is their responsibility to submit to random drug screens to ensure both that the medications prescribed are present, and that no other controlled substances are present. All prescriptions provided today were generated electronically. PLAN: 1. We discussed treatment options with the patient today. 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 We explained to the patient that if it is beneficial, to continue this medication. The states she may have him try it again or obtain the patches for the CBD cream that are permitted and see if this is beneficial. At this point, we did discuss that he has not had any increase in his Aricept medication for quite some time. They may need to speak with his primary regarding increasing this medication. He is having several periods throughout our visit today where he is not recalling certain information and is very angry about things in his past. 2. We will continue him on his current dose of OxyContin and oxycodone. Scripts will be sent electronically by Dr. Antolin Godinez for 3 months. He is at a very high morphine mEq conversion. We are not willing to increase his medication at this time, but did offer other options as far as adjunct control of pain including a CBD oil, a TENS unit, some extra strength Tylenol occasionally. He is not able to take ibuprofen due to his Pradaxa. 3. I provided them with a script for gabapentin and Skelaxin to get from the mail pharmacy for 1 year. According to the , the Skelaxin is beneficial in helping relieve some of his pain in the afternoon. 4. The patient will return in 3 months or as needed. The patient is seen today in collaboration with Dr. Antolin Godinez. <ELECTRONICALLY SIGNED> By: Mindi Min 04/19/20 0755 1055 1240 Mindi Min /nt
== END ==
LOC: PAIN 06:55
PROVIDERS: ATTEND Clinical Nurse Specialist Adult Health
DX: M54.16 Radiculopathy, lumbar region (principal); G89.4 Chronic pain syndrome; E66.01 Morbid (severe) obesity due to excess calories; F03.90 Unspecified dementia, unspecified severity, without behavioral disturbance, psychotic disturbance, mood disturbance, and anxiety; Z79.891 Long term (current) use of opiate analgesic

== ENCOUNTER → 2020-07-11 | Outpatient (CLI) | payer OTHER ==
[~2020-07-11] VITALS: Ht 167.6 cm; Wt 107.7 kg
[2020-07-11 11:13] VITALS: BP 111/61
--- NOTE | 2020-07-11 11:26 | NUR ---
Pain Clinic Assessment: 1. History of Osteoarthritis: knees History of Rheumatoid Arthritis: DENIES 2. Height: 5 ft. 6 in. 167.6 cm. Weight: 237.4 lb. oz. 107.684 kg. Patient's BMI: 38.3 3. Vital Signs: BP: 111/61 Pulse: 62 Resp: 16 Temp: 02 Sat: 97 ECG Mon: 4. Pain Intensity: 9 5. Fall Risk: Dizziness: N Needs help standing or walking: Y Fallen in the last 3 months: N Fall risk comments: 6. Patient on Blood Thinner: Dabigatran Etex (Pradaxa) 7. History of Hypertension: Y 8. Opioid Therapy greater than 6 weeks: Y Opiate Contract Signed: 11/09/15 9. Risk Assessment Tool Provided: LOW RISK-1 10. Functional Assessment Tool: 55/70 11. Recreational Drug Use: Never Drug Type: Tobacco Use: Former Smoker Tobacco Type: Amount or Packs/day: How Many Years: Alcohol Use: Past use Frequency: Quant:
--- NOTE | 2020-07-12 12:13 | HPC ---
[facility] [address] [place] [address] PAIN MANAGEMENT CONSULTATION Name: TOSIN ABBOTT JR Room #: REG [facility] Mary.#: [id number] Admission: 07/11/20 Attend Phys: Mindi Min Discharge: Date of : 43 Report #: [id number] THIS REPORT FOR: cc: Oral Martinez Ronald D. DO Hocker,Mindi HERNÁNDEZ ~ DATE OF SERVICE: 07/11/2020 CHIEF COMPLAINT: Chronic low back pain, bilateral leg pain. HISTORY OF PRESENT ILLNESS: This is a 74-year-old gentleman who returns to the pain clinic with his today for renewal of his medications. Per their report today, the patient has not been as active in the last few months and he is having increasing pain in his lumbosacral region, occasionally radiating down his right buttock into his leg. His has been applying lidocaine patches that he does find beneficial in helping reduce some of this discomfort, though the patient reports he is having more pain and is not as active than he had been in the past. Today, the patient rates his pain as a 9/10. It is a burning, sharp sensation, worse with any twisting movement. He did ride a wheelchair into the clinic today, which is a first for him. Typically, he will utilize his cane with ambulation. Overall, he feels the medication is beneficial as well as utilizing ice. He is not experiencing any constipation issues as a result of his medications. ALLERGIES: DARVON, BIAXIN, AND METHADONE. CURRENT LIST OF MEDICATIONS: Percocet 10/325 p.r.n., OxyContin 30 mg 4 times a day, Neurontin, Skelaxin, oxybutynin, Aricept, vitamin D, Flonase, Synthroid, Lovaza, Librax, Toprol, Gaviscon, MiraLax, Mucinex, vitamin C, calcium, multivitamin, Pradaxa, Bentyl, metformin, Effexor, Hytrin, Lipitor, TriCor, Lasix, Flomax. PQRS: 1. Osteoarthritic changes in his spine and knees. Denies any rheumatoid arthritis. 2. Height is 5 feet 6 inches, weight is 237, BMI is 38. 3. Vital signs; blood pressure 111/61, pulse is 62, respirations 16, oxygen sat is 97%. 4. Pain score is 9/10. 5. Fall risk. Denies dizziness. Does need assistance with ambulation. He uses a cane at all times and is in a wheelchair today, has not fallen in the last 3 months. 6. The patient is on Pradaxa as well as medications for hypertension. 7. Opioid therapy is greater than 6 weeks; therefore, an [place] [address] PAIN MANAGEMENT CONSULTATION Name: TOSIN ABBOTT JR Room #: REG CLYo Harris#: [id number] Admission: 07/11/20 Attend Phys: Mindi Min Discharge: Date of : 41 Report #: [id number] is on the chart. Risk assessment is low. Functional assessment is 55/70. 8. Recreational drug use, he is a former smoker and denies any alcohol use. According to the prescription monitoring system, the patient is filling appropriately. He is due to fill his medications this week. His morphine mEq is quite high and is followed very closely in the clinic. There is a drug screen on the chart. PHYSICAL EXAMINATION: GENERAL: This is alert and orientated, forgetful at times, 74-year-old gentleman who rates his pain score today at 9/10. He is morbidly obese and kyphotic. HEENT: Normocephalic and atraumatic. Extraocular eye muscles are intact. He is wearing a mask. MUSCULOSKELETAL: He has significant kyphosis. He has discomfort in the lumbosacral region of his back that radiates into his SI joint that is positive, increased significant pain that radiates into his right leg. His gait is antalgic, utilizing a cane at all times. Lower extremity strength is symmetrical at 5/5, though needs more assistance with ambulation then in the past. IMPRESSION: 1. Chronic low back pain with radiculopathy. 2. Right sacroiliac joint discomfort. 3. Chronic intractable pain with opioid agreement. 4. Morbid obesity. 5. Dementia, on Aricept. 6. Complex medical management utilizing scheduled opioid medications. We reviewed the fact that opiate medications are being used to provide analgesia adequate to support activities of daily living, not attempting to achieve a specific pain score on the 0-10 Visual Analog Scale. The current opiate medications are providing sufficient analgesia to allow the patient to participate in activities of daily living. The patient is not exhibiting any aberrant behavior suggestive of drug diversion. The patient is not having any adverse reactions to medications. The patient is not suffering from daytime somnolence or mental acuity changes. The patient is managing opiate-induced constipation with appropriate chpq-ntd-tfqhtwl agents and dietary considerations. The patient was counseled on concern for caution with operating a motor vehicle while using opiate medications. PLAN: 1. We discussed treatment options with the patient today. The was wondering about ordering MRI since his symptoms do seem to be increasing in his lower back. We did discuss if the patient could lay flat for a period of time to obtain the test. They are unsure if that would be the case. I do not [facility] [address] [address] PAIN MANAGEMENT CONSULTATION Name: TOSIN ABBOTT [id number] Admission: 07/11/20 Attend Phys: Mindi Min Discharge: Date of : 41 Report #: [id number] believe that he would be a good surgical candidate. We did discuss possible epidural steroid injections, which he had had in the past. Unfortunately, he developed a significant thrush. Dr. Godinez did see the patient as well today and examined him and it was determined that he seems to be experiencing his lumbar radiculopathy symptoms along with sacroiliac joint issue that is most problematic currently. We did discuss a possible injection that has a slightly lower steroid amount of the epidural that may be a possibility, but he would need to be off his Pradaxa. 2. In the meantime, they will utilize or attempt to utilize a TENS unit. We showed the various models that they may order to see if that is beneficial. If that is not beneficial, they may consider a sacroiliac joint injection if they have approval to stop the Pradaxa. 3. We will continue him on his oxycodone 10/325, #135 and OxyContin 30 mg, #120. These will be sent electronically by Dr. Godinez to fill 07/13, 08/10 and 09/07. The patient has been stable on this dose for quite some time. They have not asked for an increase in pain medications today. 4. The patient is seen today in collaboration with Dr. Antolin Godinez. Time spent with the patient today in consultation and physical examination of 20 minutes. Prior to that appointment today, I spent time reviewing the chart including physician notes and imaging. Time also spent reviewing prescription monitoring system, side effects of medication. Sending scripts electronically with collaborating physician of Dr. Godinez and documentation of at least 15 minutes. Total time spent 35 minutes. <ELECTRONICALLY SIGNED> By: Mindi Min 07/12/20 1213 1419 1512 Mindi Min /nt
== END ==
LOC: PAIN 07-07 13:01
PROVIDERS: ATTEND Clinical Nurse Specialist Adult Health
DX: M54.16 Radiculopathy, lumbar region (principal); G89.29 Other chronic pain; M79.604 Pain in right leg; M79.605 Pain in left leg; M53.3 Sacrococcygeal disorders, not elsewhere classified; E66.01 Morbid (severe) obesity due to excess calories; F03.90 Unspecified dementia, unspecified severity, without behavioral disturbance, psychotic disturbance, mood disturbance, and anxiety; F11.20 Opioid dependence, uncomplicated

== ENCOUNTER → 2020-09-29 | Outpatient (CLI) | payer OTHER ==
[~2020-09-29] VITALS: Ht 162.6 cm; Wt 105.7 kg
[~2020-09-29] MED LIST changes: +PROSCAR 5MG TABL5 M1 PO
[2020-09-29 10:00] VITALS: BP 119/62
--- NOTE | 2020-09-29 10:05 | NUR ---
Pain Clinic Assessment: 1. History of Osteoarthritis: knees History of Rheumatoid Arthritis: DENIES 2. Height: 5 ft. 4 in. 162.6 cm. Weight: 233.0 lb. oz. 105.688 kg. Patient's BMI: 40.0 3. Vital Signs: BP: 119/62 Pulse: 71 Resp: 18 Temp: 02 Sat: 97 ECG Mon: 4. Pain Intensity: 9 5. Fall Risk: Dizziness: N Needs help standing or walking: N Fallen in the last 3 months: N Fall risk comments: 6. Patient on Blood Thinner: Dabigatran Etex (Pradaxa) 7. History of Hypertension: Y 8. Opioid Therapy greater than 6 weeks: Y Opiate Contract Signed: 11/09/15 9. Risk Assessment Tool Provided: LOW RISK-1 10. Functional Assessment Tool: 55/70 11. Recreational Drug Use: Never Drug Type: Tobacco Use: Former Smoker Tobacco Type: Amount or Packs/day: How Many Years: Alcohol Use: Past use Frequency: Quant:
== END ==
LOC: PAIN 07:01
PROVIDERS: ATTEND Clinical Nurse Specialist Adult Health
DX: M54.5 Low back pain (principal); M79.661 Pain in right lower leg; M79.662 Pain in left lower leg; I10 Essential (primary) hypertension; M54.16 Radiculopathy, lumbar region; G89.4 Chronic pain syndrome; E66.01 Morbid (severe) obesity due to excess calories; F03.90 Unspecified dementia, unspecified severity, without behavioral disturbance, psychotic disturbance, mood disturbance, and anxiety; Z79.899 Other long term (current) drug therapy; Z88.1 Allergy status to other antibiotic agents; Z88.8 Allergy status to other drugs, medicaments and biological substances; Z87.891 Personal history of nicotine dependence; Z79.891 Long term (current) use of opiate analgesic

== ENCOUNTER → 2020-12-26 | Outpatient (CLI) | payer OTHER ==
[~2020-12-26] VITALS: Ht 162.6 cm; Wt 104.8 kg
[2020-12-26 10:45] VITALS: BP 118/77
--- NOTE | 2020-12-26 10:56 | NUR ---
Pain Clinic Assessment: 1. History of Osteoarthritis: knees History of Rheumatoid Arthritis: DENIES 2. Height: 5 ft. 4 in. 162.6 cm. Weight: 231.0 lb. oz. 104.781 kg. Patient's BMI: 39.6 3. Vital Signs: BP: 118/77 Pulse: 70 Resp: 18 Temp: 02 Sat: 99 ECG Mon: 4. Pain Intensity: 9 5. Fall Risk: Dizziness: N Needs help standing or walking: Y Fallen in the last 3 months: N Fall risk comments: 6. Patient on Blood Thinner: Dabigatran Etex (Pradaxa) 7. History of Hypertension: Y 8. Opioid Therapy greater than 6 weeks: Y Opiate Contract Signed: 11/09/15 9. Risk Assessment Tool Provided: LOW RISK-1 10. Functional Assessment Tool: 55/70 11. Recreational Drug Use: Never Drug Type: Tobacco Use: Former Smoker Tobacco Type: Amount or Packs/day: How Many Years: Alcohol Use: Past use Frequency: Quant:
== END ==
LOC: PAIN 07:03
PROVIDERS: ATTEND Clinical Nurse Specialist Adult Health
DX: M54.16 Radiculopathy, lumbar region (principal); G89.4 Chronic pain syndrome; E66.01 Morbid (severe) obesity due to excess calories; I10 Essential (primary) hypertension; Z87.891 Personal history of nicotine dependence; F03.90 Unspecified dementia, unspecified severity, without behavioral disturbance, psychotic disturbance, mood disturbance, and anxiety; Z79.891 Long term (current) use of opiate analgesic; Z79.899 Other long term (current) drug therapy; Z88.1 Allergy status to other antibiotic agents; Z88.8 Allergy status to other drugs, medicaments and biological substances

== ENCOUNTER → 2021-03-20 | Outpatient (CLI) | payer OTHER ==
[~2021-03-20] VITALS: Ht 162.6 cm; Wt 103.4 kg
[2021-03-20 10:36] VITALS: BP 120/50
--- NOTE | 2021-03-20 10:41 | NUR ---
Pain Clinic Assessment: 1. History of Osteoarthritis: knees History of Rheumatoid Arthritis: DENIES 2. Height: 5 ft. 4 in. 162.6 cm. Weight: 228.0 lb. oz. 103.420 kg. Patient's BMI: 39.1 3. Vital Signs: BP: 120/50 Pulse: 66 Resp: 18 Temp: 02 Sat: 99 ECG Mon: 4. Pain Intensity: 8 5. Fall Risk: Dizziness: N Needs help standing or walking: N Fallen in the last 3 months: N Fall risk comments: 6. Patient on Blood Thinner: Dabigatran Etex (Pradaxa) 7. History of Hypertension: Y 8. Opioid Therapy greater than 6 weeks: Y Opiate Contract Signed: 11/09/15 9. Risk Assessment Tool Provided: LOW RISK-1 10. Functional Assessment Tool: 55/70 11. Recreational Drug Use: Never Drug Type: Tobacco Use: Former Smoker Tobacco Type: Amount or Packs/day: How Many Years: Alcohol Use: Past use Frequency: Quant:
== END ==
LOC: PAIN 09:39
PROVIDERS: ATTEND Anesthesiology Pain Medicine
DX: M47.26 Other spondylosis with radiculopathy, lumbar region (principal); G89.29 Other chronic pain; M25.551 Pain in right hip; E66.01 Morbid (severe) obesity due to excess calories; Z87.891 Personal history of nicotine dependence; Z88.8 Allergy status to other drugs, medicaments and biological substances; Z79.84 Long term (current) use of oral hypoglycemic drugs; Z79.899 Other long term (current) drug therapy

== ENCOUNTER → 2021-06-12 | Outpatient (CLI) | payer OTHER ==
[~2021-06-12] VITALS: Ht 162.6 cm; Wt 99.7 kg
[2021-06-12 09:05] VITALS: BP 125/56
--- NOTE | 2021-06-12 09:14 | NUR ---
Pain Clinic Assessment: 1. History of Osteoarthritis: knees History of Rheumatoid Arthritis: DENIES 2. Height: 5 ft. 4 in. 162.6 cm. Weight: 219.8 lb. oz. 99.701 kg. Patient's BMI: 37.7 3. Vital Signs: BP: 125/56 Pulse: 63 Resp: 20 Temp: 02 Sat: 100 ECG Mon: 4. Pain Intensity: 9 5. Fall Risk: Dizziness: N Needs help standing or walking: Y Fallen in the last 3 months: Y Fall risk comments: 6. Patient on Blood Thinner: Dabigatran Etex (Pradaxa) 7. History of Hypertension: Y 8. Opioid Therapy greater than 6 weeks: Y Opiate Contract Signed: 11/09/15 9. Risk Assessment Tool Provided: LOW RISK-1 10. Functional Assessment Tool: 55/70 11. Recreational Drug Use: Never Drug Type: Tobacco Use: Former Smoker Tobacco Type: Amount or Packs/day: How Many Years: Alcohol Use: Past use Frequency: Quant:
== END ==
LOC: PAIN 07:02
PROVIDERS: ATTEND Clinical Nurse Specialist Adult Health
DX: M47.26 Other spondylosis with radiculopathy, lumbar region (principal); G89.29 Other chronic pain; M54.50 Low back pain, unspecified; F03.90 Unspecified dementia, unspecified severity, without behavioral disturbance, psychotic disturbance, mood disturbance, and anxiety; E66.01 Morbid (severe) obesity due to excess calories; Z79.899 Other long term (current) drug therapy; Z88.8 Allergy status to other drugs, medicaments and biological substances